=== PATIENT | female | born 1945 | race Caucasian/White ===

== ENCOUNTER 2022-06-04 10:05 | Inpatient (IN) | payer OTHER, SELFPAY ==
[2022-06-04] VITALS (9 sets, daily range): BP systolic 109–139; BP diastolic 52–64; PULSE 60–73; RESP 18–24; TEMP 36.5–37.1; O2SAT 88–92; BMI 24.3; BMI 25.0
--- NOTE | 2022-06-04 10:11 | CRLHL7_ITS ---
For Patients: As a result of the 21st Century Cures Act, medical imaging exams and procedure reports are released immediately into your electronic medical record. You may view this report before your referring provider. If you have questions, please contact your health care provider. INDICATION: Cough, abdominal pain, concern for pulmonary embolus TECHNIQUE: CT chest, abdomen and pelvis acquired 95 milliliters Isovue 370 contrast. COMPARISON: None. FINDINGS: CHEST: Pulmonary arteries: Motion degrades evaluation of the distal segmental and subsegmental pulmonary arteries. No central or proximal segmental pulmonary embolus. Lungs and Airways: Left upper lobe and lingular consolidation. Left basilar passive atelectasis. 4 millimeter nodule in the middle lobe axial image 137. Bibasilar subsegmental atelectasis. No endoluminal lesion. Heart and Mediastinum: Atrophic versus resected thyroid. No axillary or supraclavicular lymphadenopathy. Conspicuous not enlarged mediastinal lymph nodes. Normal heart size. Normal caliber aorta. Atherosclerotic aorta. Pleura: Small left pleural effusion. ABDOMEN: Liver: Normal enhancement. No focal suspicious hepatic lesions. Gallbladder and biliary: Normal gallbladder without radiopaque stone. Normal caliber bile ducts. Spleen: Normal size and enhancement. Pancreas: Normal enhancement without peripancreatic inflammatory changes or ductal dilatation. Adrenal glands: Normal adrenal glands. Kidneys and ureters: Normal enhancement. No radio-opaque calculi. No hydroureteronephrosis. Subcentimeter hypodensities are too small to characterize however statistically represent cysts. GI tract: The stomach is relatively decompressed. Normal caliber small and large bowel loops. Appendix not definitively visualized. Likely appendectomy scattered colonic diverticula without diverticulitis. Vascular structures: Patent abdominal aorta with atherosclerotic vascular calcifications. Patent portosplenic confluence, portal veins, and hepatic veins. Lymph nodes: No lymphadenopathy in the abdomen or pelvis by size criteria. Peritoneum: Small volume free fluid layering in the pelvis. PELVIS: Genitourinary system: Normal urinary bladder. Age-appropriate uterus and ovaries. SKELETAL STRUCTURES AND SOFT TISSUES: Small bilateral fat containing Bochdalek hernias. IMPRESSION: 1. Motion degrades evaluation of the distal segmental and subsegmental pulmonary arteries. No central or proximal segmental pulmonary embolus. 2. Left upper lobe consolidation with associated small left pleural effusion concerning for pneumonia. Recommend unenhanced chest CT in 3 months after appropriate medical therapy to document resolution and to assess for underlying malignant potential. 3. 4 millimeter middle lobe indeterminate pulmonary nodule. Attention on follow-up exams. 4. Small volume free fluid layering dependently in the pelvis, indeterminate. 5. No obstruction or hydroureteronephrosis. Please note that all CT scans at this facility use dose modulation, iterative reconstruction, and/or weight-based dosing when appropriate to reduce radiation dose to as low as reasonably achievable. Dictated by Travon Arnold MD @ 06/04/2022 1:17:12 PM (Electronically Signed)
--- NOTE | 2022-06-04 10:33 | ED_ITS ---
HPI - General Adult General Time Seen by Provider: 10:33 Date Seen: 06/04/22 Chief complaint: Weakness Stated complaint: vomitting,not eaten anything for 2 days Time Seen by Provider: 06/04/22 10:10 Source: patient Mode of arrival: wheelchair Limitations: physical limitation History of Present Illness HPI narrative: Patient is a 76 year white female presents with weakness. She was seen yesterday in the Urgent Care for greater trochanteric bursitis on the right was diagnosed but no treatment was given. Patient has been taking Aleve. Last 2 days she has not ate or drank much. She has been a little bit upset her stomach. She has had no appetite. She has had bowel and bladder function no dysuria. She denies chest pain or shortness of breath, denies fever chills or rigors. Patient has been feeling dehydrated, also feels a little bit weak and her has to actually hold her up. She has had no cough, no leg swelling or edema. She has had a past medical history of hypothyroidism takes Synthroid. Otherwise largely has been healthy, no chronic lung disease. Related Data Home Medications Medication Instructions Recorded Confirmed levothyroxine 100 mcg tablet 100 mcg PO DAILY 06/04/22 06/04/22 simvastatin 10 mg tablet 10 mg PO HS 06/04/22 06/04/22 Allergies Allergy/AdvReac Type Severity Reaction Status Date / Time Penicillins Allergy Verified 06/04/22 11:33 Sulfa (Sulfonamide Allergy Verified 06/04/22 11:33 Antibiotics) Review of Systems Status of ROS: Reports: 10 or more systems reviewed and unremarkable except as noted in History and below PFSH PFS Social History Non-prescribed substance use: denies use Exam Narrative: Exam Narrative: Objective: Patient's vital signs unremarkable O2 sat is slightly low at 91%. The patient is somewhat slow speech. But alert oriented appears fatigued. No conjunctival paleness Mouth is very dry Neck is supple Chest is clear no rales or wheezing Heart rhythm regular without murmur occasional ectopic beat noted Abdomen benign soft nontender no masses Extremities are no edema neurologic nonfocal good peripheral perfusion noted Const: Vital Signs, click to edit/add: Vital Signs - 24 hr 06/04/22 10:22 06/04/22 11:00 06/04/22 12:00 Temperature 98.2 F Pulse Rate [Right Pulse Oximeter] 67 71 Respiratory Rate 18 Blood Pressure [Le ft Upper Arm] 114/52 L 119/57 L Blood Pressure [Ri ght Upper Arm] 127/62 Pulse Oximetry 91 88 88 Oxygen Delivery Me thod Room Air Room Air Room Air 06/04/22 12:30 Temperature Pulse Rate [Right Pulse Oximeter] 73 Respiratory Rate 24 Blood Pressure [Le ft Upper Arm] 121/64 Blood Pressure [Ri ght Upper Arm] Pulse Oximetry 88 Oxygen Delivery Me thod Room Air Course Vital Signs Vital signs: Initial Vital Signs Temperature 98.2 F 06/04/22 10:22 Temperature Source Temporal Artery Scan 06/04/22 10:22 Pulse Rate 67 06/04/22 10:22 Respiratory Rate 18 06/04/22 10:22 Blood Pressure 127/62 06/04/22 10:22 Blood Pressure Mean 83 06/04/22 10:22 Blood Pressure Position Supine 06/04/22 10:22 Pulse Oximetry 91 06/04/22 10:22 Oxygen Delivery Method 06/04/22 10:22 Vital Signs Temperature 98.2 F 06/04/22 10:22 Pulse Rate 67 06/04/22 10:22 Respiratory Rate 18 06/04/22 10:22 Blood Pressure 127/62 06/04/22 10:22 Pulse Oximetry 91 06/04/22 10:22 Oxygen Delivery Method 06/04/22 10:22 Temperature 98.2 F 06/04/22 10:22 Pulse Rate 73 06/04/22 12:30 Respiratory Rate 24 06/04/22 12:30 Blood Pressure 121/64 06/04/22 12:30 Pulse Oximetry 88 06/04/22 12:30 Oxygen Delivery Method 06/04/22 12:30 Medical Decision Making MDM Narrative Medical decision making narrative: Patient does have tenderness in her right greater trochanter bursa but not significant enough to cause her nausea vomiting poor p.o. intake for couple of days. She has been taking Aleve. She fears very dehydrated. I think ruling out a secondary cause of her situation makes sense. She needs laboratory studies she needs a CT scan of her abdomen she needs IV fluid IV Zofran. Urinalysis blood work. Determination of status based on her clinical response and findings if she continues to be weak than hospitalization might be in order. She does not have a fever today Addendum: The patient has a large left parapneumonic effusion it appears/pleural effusion. Will check above-mentioned studies. Disposition pending CT scan of the chest as well. Addendum: CT appears to show pneumonia. Will patient be started on Levaquin and Rocephin she does have penicillin allergy. Patient also has an EKG that shows normal sinus rhythm. Family was comfortable plan, she seems a little better after hydration. O2 sats have been in the low 90% range probably should have some oxygen for [address] Santos kindly accepts in admission Lab Data Labs: Lab Results 06/04/22 06/04/22 06/04/22 Range/Units 10:11 10:40 10:40 WBC 11.46 H (4.50-11.00) K/uL RBC 4.35 (4.00-5.20) m/uL Hgb 12.8 (12.0-16.0) gm/dL Hct 37.3 (33.0-51.0) % MCV 86 (80-100) fL MCH 29 (26-34) pg MCHC 34 (32-36) gm/dL RDW Coeff of Chidi 14.6 (11.5-15.5) % Plt Count 187 (140-440) K/uL Neut % (Auto) 86.2 H (42.0-72.0) % Lymph % (Auto) 5.8 L (20-44) % Jenkins % (Auto) 3.1 (0.0-11.0) % Eos % (Auto) 0.0 (0.0-7.0) % Baso % (Auto) 0.1 (0.0-3.0) % Neut # (Auto) 9.90 H (1.7-7.0) K/uL Lymph # (Auto) 0.70 L (0.90-2.90) K/uL Jenkins # (Auto) 0.40 (0.00-0.90) K/UL Eos # (Auto) 0.00 (0.00-0.50) K/uL Baso # (Auto) 0.00 (0.00-0.30) K/uL Diff Slide Review Acceptable Review (Acceptable) INR 0.89 L (0.91-1.10) Sodium (135-149) mmol/L Potassium (3.6-5.1) mmol/L Chloride (96-114) mmol/L Carbon Dioxide (20-32) mmol/L BUN (7-30) mg/dL Creatinine (0.5-1.5) mg/dL Estimated Creat Clear Estimated GFR ml/min Glucose (60-115) mg/dL Lactate (0.5-1.9) mmol/L Calcium (8.4-10.6) mg/dL Total Bilirubin (0.1-1.5) mg/dL Direct Bilirubin (0.0-0.5) mg/dL AST (12-35) U/L ALT (4-35) U/L Alkaline Phosphatase (40-150) U/L Troponin I (0.01-0.04) ng/mL C-Reactive Protein (0.5-1.0) mg/dL NT-Pro-B Natriuret Pep pg/mL Total Protein (6.0-8.3) g/dL Albumin (3.3-5.0) g/dL Amylase (18-89) U/L SARS-CoV-2 (PCR) Negative SARS-CoV-2 (Negative) Influenza Type A (PCR) Negative PCR FLU A (Negative) Influenza Type B (PCR) Negative PCR FLU B (Negative) RSV (PCR) Negative PCR RSV (Negative) 06/04/22 06/04/22 06/04/22 Range/Units 10:40 10:40 10:40 WBC (4.50-11.00) K/uL RBC (4.00-5.20) m/uL Hgb (12.0-16.0) gm/dL Hct (33.0-51.0) % MCV (80-100) fL MCH (26-34) pg MCHC (32-36) gm/dL RDW Coeff of Chidi (11.5-15.5) % Plt Count (140-440) K/uL Neut % (Auto) (42.0-72.0) % Lymph % (Auto) (20-44) % Jenkins % (Auto) (0.0-11.0) % Eos % (Auto) (0.0-7.0) % Baso % (Auto) (0.0-3.0) % Neut # (Auto) (1.7-7.0) K/uL Lymph # (Auto) (0.90-2.90) K/uL Jenkins # (Auto) (0.00-0.90) K/UL Eos # (Auto) (0.00-0.50) K/uL Baso # (Auto) (0.00-0.30) K/uL Diff Slide Review (Acceptable) INR (0.91-1.10) Sodium 128 L (135-149) mmol/L Potassium 4.2 (3.6-5.1) mmol/L Chloride 103 (96-114) mmol/L Carbon Dioxide 19 L (20-32) mmol/L BUN 32 H (7-30) mg/dL Creatinine 1.2 (0.5-1.5) mg/dL Estimated Creat Clear 39.60 Estimated GFR 47 ml/min Glucose 134 H (60-115) mg/dL Lactate 0.9 (0.5-1.9) mmol/L Calcium 8.2 L (8.4-10.6) mg/dL Total Bilirubin 0.7 (0.1-1.5) mg/dL Direct Bilirubin 0.6 H (0.0-0.5) mg/dL AST 92 H (12-35) U/L ALT 43 H (4-35) U/L Alkaline Phosphatase 513 H (40-150) U/L Troponin I 0.03 (0.01-0.04) ng/mL C-Reactive Protein 18.2 H (0.5-1.0) mg/dL NT-Pro-B Natriuret Pep pg/mL Total Protein 6.7 (6.0-8.3) g/dL Albumin 2.9 L (3.3-5.0) g/dL Amylase 98 H (18-89) U/L SARS-CoV-2 (PCR) (Negative) Influenza Type A (PCR) (Negative) Influenza Type B (PCR) (Negative) RSV (PCR) (Negative) 06/04/22 Range/Units 11:20 WBC (4.50-11.00) K/uL RBC (4.00-5.20) m/uL Hgb (12.0-16.0) gm/dL Hct (33.0-51.0) % MCV (80-100) fL MCH (26-34) pg MCHC (32-36) gm/dL RDW Coeff of Chidi (11.5-15.5) % Plt Count (140-440) K/uL Neut % (Auto) (42.0-72.0) % Lymph % (Auto) (20-44) % Jenkins % (Auto) (0.0-11.0) % Eos % (Auto) (0.0-7.0) % Baso % (Auto) (0.0-3.0) % Neut # (Auto) (1.7-7.0) K/uL Lymph # (Auto) (0.90-2.90) K/uL Jenkins # (Auto) (0.00-0.90) K/UL Eos # (Auto) (0.00-0.50) K/uL Baso # (Auto) (0.00-0.30) K/uL Diff Slide Review (Acceptable) INR (0.91-1.10) Sodium (135-149) mmol/L Potassium (3.6-5.1) mmol/L Chloride (96-114) mmol/L Carbon Dioxide (20-32) mmol/L BUN (7-30) mg/dL Creatinine (0.5-1.5) mg/dL Estimated Creat Clear Estimated GFR ml/min Glucose (60-115) mg/dL Lactate (0.5-1.9) mmol/L Calcium (8.4-10.6) mg/dL Total Bilirubin (0.1-1.5) mg/dL Direct Bilirubin (0.0-0.5) mg/dL AST (12-35) U/L ALT (4-35) U/L Alkaline Phosphatase (40-150) U/L Troponin I (0.01-0.04) ng/mL C-Reactive Protein (0.5-1.0) mg/dL NT-Pro-B Natriuret Pep 1480 pg/mL Total Protein (6.0-8.3) g/dL Albumin (3.3-5.0) g/dL Amylase (18-89) U/L SARS-CoV-2 (PCR) (Negative) Influenza Type A (PCR) (Negative) Influenza Type B (PCR) (Negative) RSV (PCR) (Negative) Discharge Plan Discharge Clinical Impression: Weakness, Pneumonia Patient Disposition: Admitted As Inpatient
--- NOTE | 2022-06-04 10:37 | CRLHL7_ITS ---
For Patients: As a result of the Century Cures Act, medical imaging exams and procedure reports are released immediately into your electronic medical record. You may view this report before your referring provider. If you have questions, please contact your health care provider. INDICATION: Weakness. TECHNIQUE: One-view chest. COMPARISON: None. FINDINGS: There is a large left pleural effusion. Additional opacity is present throughout the mid and lower left lung. The right lung is clear. No right-sided pleural effusion is evident. There is no pneumothorax. The cardiac silhouette is obscured. The pulmonary vascularity is within normal limits for technique. IMPRESSION: Large left pleural effusion. Additional opacity in the mid and lower left lung may reflect pneumonia in the appropriate clinical context. Neoplastic process cannot be entirely excluded and follow-up imaging should be performed. Dictated by Antonio Bell MD @ 06/04/2022 11:55:46 AM (Electronically Signed)
[2022-06-04 10:45] LABS: Basophils Percent Auto 0.1 % (0.0-3.0); Hematocrit 37.3 % (33.0-51.0); Hemoglobin* 12.8 gm/dL (12.0-16.0); Immature Granulocytes Pct Auto 4.8 %; Lymphocytes Percent Auto 5.8 % (20-44); Mean Corpuscular HGB Conc 34 gm/dL (32-36); Mean Corpuscular Hemoglobin 29 pg (26-34); Mean Corpuscular Volume 86 fL (80-100); Monocytes Percent Auto 3.1 % (0.0-11.0); Neutrophils Percent Auto 86.2 % (42.0-72.0); Platelet Count* 187 K/uL (140-440); RDW Coefficient of Variation % 14.6 % (11.5-15.5); Red Blood Count 4.35 m/uL (4.00-5.20); White Blood Count* 11.46 K/uL (4.50-11.00)
[2022-06-04 10:46] LABS: Lactate* 0.9 mmol/L (0.5-1.9)
[2022-06-04] MEDS: 0.9 % SODIUM CHLORIDE 1000 ml 1,000 ML 6000 ML IV (10:50)
[2022-06-04] MEDS: ONDANSETRON 2 MG/ML inj 4 MG IVP ×2 (10:50→22:13)
[2022-06-04 11:00] LABS: Albumin* 2.9 g/dL (3.3-5.0); Chloride* 103 mmol/L (96-114)
[2022-06-04 11:01] LABS: Potassium* 4.2 mmol/L (3.6-5.1); Sodium* 128 mmol/L (135-149)
[2022-06-04 11:03] LABS: Amylase* 98 U/L (18-89); Creatinine* 1.2 mg/dL (0.5-1.5); Estimated Glomerular Filt Rate 47 ml/min
[2022-06-04 11:04] LABS: Alanine Aminotransferase* 43 U/L (4-35); Alkaline Phosphatase* 513 U/L (40-150); Aspartate Amino Transferase* 92 U/L (12-35); Bilirubin Direct* 0.6 mg/dL (0.0-0.5); Bilirubin Total* 0.7 mg/dL (0.1-1.5); Blood Urea Nitrogen* 32 mg/dL (7-30); Calcium* 8.2 mg/dL (8.4-10.6); Carbon Dioxide* 19 mmol/L (20-32); Glucose* 134 mg/dL (60-115); Total Protein* 6.7 g/dL (6.0-8.3)
[2022-06-04 11:16] LABS: Troponin I* 0.03 ng/mL (0.01-0.04)
[2022-06-04 11:18] LABS: C Reactive Protein* 18.2 mg/dL (0.5-1.0)
[2022-06-04 11:24] LABS: Slide Review Reflex Yes
[2022-06-04 11:25] LABS: Slide Review Acceptable Review (Acceptable)
[2022-06-04 11:29] LABS: PCR FLU A Negative PCR FLU A (Negative); PCR FLU B Negative PCR FLU B (Negative); PCR RSV Negative PCR RSV (Negative)
[2022-06-04 11:31] LABS: SARS PCR* Negative SARS-CoV-2 (Negative)
[2022-06-04 12:00] LABS: NT Pro B Type NatriureticPept* 1480 pg/mL
[2022-06-04 13:32] LABS: INR 0.89 (0.91-1.10); Prothrombin Time 12.6 Seconds
[2022-06-04] MEDS: levoFLOXacin 500 MG TABLET PO (13:49)
[2022-06-04] MEDS: cefTRIAXone 1 GM in 0.9 % SODIUM CHLORIDE Mini-bag 100 ML IVPB (13:50)
--- NOTE | 2022-06-04 14:56 | PM.IMHP1 ---
Hospitalist- H&P: HPI History of Present Illness Date Seen: 06/04/22 Chief complaint: vomitting,not eaten anything for 2 days Narrative: Cinthia Carlos is a 76 year old female This is a 76F presenting for evaluation of generalized weakness. Since May 25 she has had progressive generalized weakness. Associated symptoms have included cough, sob with activity, nausea and vomiting. she has had decreased PO intake. She denies fever, chest pain, chest pressure. She endorses bilateral hip pain and was recently diagnosed with greater trochanteric bursitis. In the ED notable labs included WBC 11.4. Sodium 128. CO2 19. Lactate WNL. AST 92, ALt 43, Alk phos 513. BNP 1480. Amylase 98. CT CAP notable for?Left upper lobe consolidation with associated small left pleural?effusion concerning for pneumonia. Recommend unenhanced chest CT in 3 months after appropriate medical therapy to document resolution and toassess for underlying malignant potential. She was started on ceftriaxone and doxycycline?and admitted for further evaluation.? CT CAP in ED revealed IMPRESSION: 1. Motion degrades evaluation of the distal segmental and subsegmental pulmonary arteries. No central or proximal segmental pulmonary embolus. 2. Left upper lobe consolidation with associated small left pleural effusion concerning for pneumonia. Recommend unenhanced chest CT in 3 months after appropriate medical therapy to document resolution and to assess for underlying malignant potential. 3. 4 millimeter middle lobe indeterminate pulmonary nodule. Attention on follow-up exams. 4. Small volume free fluid layering dependently in the pelvis, indeterminate. 5. No obstruction or hydroureteronephrosis. CXR Large left pleural effusion. Additional opacity in the mid and lower left lung may reflect pneumonia in the appropriate clinical context. Neoplastic process cannot be entirely excluded and follow-up imaging should be performed. Review of Systems Status of ROS: Reports: 10 or more systems reviewed and unremarkable except as noted in History and below [facility] PFS Social History Non-prescribed substance use: denies use Meds Home Medications and Allergies Home Medications Medication Instructions Recorded Confirmed Type levothyroxine 100 mcg tablet 100 mcg PO DAILY 06/04/22 06/04/22 History simvastatin 10 mg tablet 10 mg PO HS 06/04/22 06/04/22 History Allergies Allergy/AdvReac Type Severity Reaction Status Date / Time Penicillins Allergy Verified 06/04/22 11:33 Sulfa (Sulfonamide Allergy Verified 06/04/22 11:33 Antibiotics) Exam Narrative: Exam Narrative: Gen: no acute distress HEENT: NCAT EOMI mmm Neck: Supple CV: RRR normal s1 s2 Lungs: CTAB Abd: Soft,nt, nd Neuro: Alert, oriented, CN grossly intact; nonfocal screening?exam Psych: appropriate affect MSK: age appropriate muscle mass Skin; Warm, dry no rash on face Const: Vital Signs, click to edit/add: Vital Signs - 24 hr 06/04/22 10:22 06/04/22 11:00 06/04/22 12:00 Temperature 98.2 F Pulse Rate [Right Pulse Oximeter] 67 71 Respiratory Rate 18 Blood Pressure [Le ft Upper Arm] 114/52 L 119/57 L Blood Pressure [Ri ght Upper Arm] 127/62 Pulse Oximetry 91 88 88 Oxygen Delivery Me thod Room Air Room Air Room Air 06/04/22 12:30 Temperature Pulse Rate [Right Pulse Oximeter] 73 Respiratory Rate 24 Blood Pressure [Le ft Upper Arm] 121/64 Blood Pressure [Ri ght Upper Arm] Pulse Oximetry 88 Oxygen Delivery Me thod Room Air Hospitalist - H&P: Result Labs Labs: Short CBC 06/04/22 Range/Units 10:40 WBC 11.46 H (4.50-11.00) K/uL Hgb 12.8 (12.0-16.0) gm/dL Hct 37.3 (33.0-51.0) % Plt Count 187 (140-440) K/uL BMP 06/04/22 10:40 Sodium 128 L Potassium 4.2 Chloride 103 Carbon Dioxide 19 L BUN 32 H Creatinine 1.2 Glucose 134 H Calcium 8.2 L Cardiac Enzymes 06/04/22 Range/Units 10:40 Troponin I 0.03 (0.01-0.04) ng/mL Liver Function 06/04/22 Range/Units 10:40 Total Bilirubin 0.7 (0.1-1.5) mg/dL Direct Bilirubin 0.6 H (0.0-0.5) mg/dL AST 92 H (12-35) U/L ALT 43 H (4-35) U/L Alkaline Phosphatase 513 H (40-150) U/L Albumin 2.9 L (3.3-5.0) g/dL Assessment and Plan Assessment and plan (1) Pneumonia: Status: Acute (2) Hyponatremia: Status: Acute (3) Weakness: Status: Acute (4) Hypothyroidism: Status: Acute (5) Abnormal LFTs (liver function tests): Status: Acute (6) Hyperlipidemia: Status: Acute (7) Elevated amylase: Status: Acute Plan Cinthia Carlos is a 76 year old female presenting for evaluation of generalized weakness, cough, sob with activity, nausea and vomiting. she has had decreased PO intake. In the ED notable labs included WBC 11.4. Sodium 128. CO2 19. Lactate WNL. AST 92, ALt 43, Alk phos 513. BNP 1480. Amylase 98. CT CAP notable for?Left upper lobe consolidation with associated small left pleural?effusion concerning for pneumonia. Recommend unenhanced chest CT in 3 months after appropriate medical therapy to document resolution and to assess for underlying malignant potential. She was started on ceftriaxone and levaquin?and admitted for further evaluation. 1. Left upper lobe PNA w/small left pleural effusion; currently on room air 2. Generalized weakness secondary to #1 3. Hypovolemic Hyponatremia 4. Abnormal LFTs/Transaminitis 5. SOB/Elevated BNP 6. Elevated amylase 7. Recent diagnosis of greater trochanteric bursitits 8. Hx of Hypothyroidism 9. hx of HLD Plan -admit to inpatient -continue antibiotics: ceftriaxone +doxycycline -IVF; repeat sodium -trend LFts, check hepatitis serologies, check RUQ US -check lipase -check TSH -hold statin -therapy evaluation ? -Echo -outpatient CT Chest 3 months Code-Full DVT ppx-lovenox Dispo-anticipated dc home 2-3 days
[2022-06-04 15:00] LABS: Appearance Urine Clear (Clear); Bilirubin Urine Negative (Negative); Blood Urine Trace-lysed (Negative); Color Urine Yellow (Yellow); Glucose Urine Negative (Negative); Ketones Urine Negative (Negative); Leukocyte Esterase Urine Negative (Negative); Nitrite Urine Negative (Negative); Protein Urine Trace (Negative); Urobilinogen Urine 0.2 (0.2-1.0); pH Urine 6.5 (5.0-8.5)
[2022-06-04 15:16] LABS: Bacteria Urine Few; RBC Urine 0-2 (0-2); Squamous Epithelial Cell Urine Few (None-Few); WBC Urine 0-2 (0-5)
[2022-06-04] MEDS: 0.9 % SODIUM CHLORIDE 1000 ml 1,000 ML 100 ML IV (15:31)
[2022-06-04] MEDS: OXYCODONE 5 MG TABLET PO (18:23)
[2022-06-04 19:56] LABS: Sodium* 130 mmol/L (135-149)
[2022-06-04 20:16] LABS: Procalcitonin* 1.09 ng/mL (<0.50)
[2022-06-04] MEDS: ENOXAPARIN 40 MG/0.4 ML INJ SUBCUT (20:17)
[2022-06-04] MEDS: SODIUM CHLORIDE 0.9 % (FLUSH) 10 ML SYRINGE 5 ML IVF (20:23)
[2022-06-05 00:02] LABS: Sodium* 128 mmol/L (135-149)
[2022-06-05 00:05] LABS: Lipase* 224 U/L (23-300)
[2022-06-05] MEDS: 0.9 % SODIUM CHLORIDE 1000 ml 1,000 ML 100 ML IV ×3 (00:42→20:50)
[2022-06-05 03:00] VITALS: BP 120/60; PULSE 60; RESP 18; TEMP 37.1; O2SAT 90
[2022-06-05] MEDS: LEVOTHYROXINE 100 MCG TABLET PO (06:14)
[2022-06-05 06:34] LABS: Basophils Absolute Auto 0.01 K/uL (0.00-0.30); Basophils Percent Auto 0.1 % (0.0-3.0); Eosinophils Absolute Auto 0.01 K/uL (0.00-0.50); Eosinophils Percent Auto 0.1 % (0.0-7.0); Hematocrit 34.8 % (33.0-51.0); Hemoglobin* 11.7 gm/dL (12.0-16.0); Immature Granulocytes Pct Auto 7.3 %; Lymphocytes Percent Auto 7.4 % (20-44); Mean Corpuscular HGB Conc 34 gm/dL (32-36); Mean Corpuscular Hemoglobin 30 pg (26-34); Mean Corpuscular Volume 88 fL (80-100); Monocytes Percent Auto 2.9 % (0.0-11.0); Neutrophils Percent Auto 82.2 % (42.0-72.0); Platelet Count* 190 K/uL (140-440); RDW Coefficient of Variation % 15.4 % (11.5-15.5); Red Blood Count 3.97 m/uL (4.00-5.20)
[2022-06-05 06:55] LABS: Albumin* 2.4 g/dL (3.3-5.0); Chloride* 108 mmol/L (96-114); Potassium* 4.4 mmol/L (3.6-5.1); Sodium* 133 mmol/L (135-149)
[2022-06-05 06:57] LABS: Bilirubin Direct* 0.4 mg/dL (0.0-0.5); Bilirubin Total* 0.5 mg/dL (0.1-1.5); Carbon Dioxide* 19 mmol/L (20-32); Est. Creatinine Clearance* 47.53; Estimated Glomerular Filt Rate 58 ml/min
[2022-06-05 06:58] LABS: Alanine Aminotransferase* 38 U/L (4-35); Alkaline Phosphatase* 380 U/L (40-150); Aspartate Amino Transferase* 74 U/L (12-35); Blood Urea Nitrogen* 23 mg/dL (7-30); Calcium* 7.3 mg/dL (8.4-10.6); Glucose* 93 mg/dL (60-115); Lipase* 144 U/L (23-300); Total Protein* 5.7 g/dL (6.0-8.3)
[2022-06-05 07:12] LABS: Slide Review Reflex Yes
[2022-06-05 07:13] LABS: Procalcitonin* 0.99 ng/mL (<0.50); Slide Review Acceptable Review (Acceptable)
[2022-06-05 07:30] VITALS: BP 123/61; PULSE 64; RESP 20; TEMP 36.4; O2SAT 96
--- NOTE | 2022-06-05 07:38 | PC.NURSE ---
Status [id number] Pt drowsy, able to answer orientation questions but delayed with responses. Speech is somewhat stuttered. , Juan M, rooming in and stating this is not baseline for patient. Pt did receive Oxy at 1830 and did report pt is sensitive to medications. Pt did get nauseated with emesis around 2230 when transferring to commode. PRN zofran given. Neuros checked and intact. As the night progressed, mentation clearing up a little bit. Pt remains very weak, requiring assist of 2 and pivot to commode. Voiding adequately. NS at 100mL/hr. Continues on IV antibiotics. BP stable. Requiring 2L of supplemental oxygen to maintain sats >90%. Pt observed resting between cares.
[2022-06-05 07:57] LABS: Free T4 Free Thyroxine* 0.92 ng/dL (0.70-1.85)
[2022-06-05] MEDS: SODIUM CHLORIDE 0.9 % (FLUSH) 10 ML SYRINGE 5 ML IVF ×2 (09:21→19:49)
--- NOTE | 2022-06-05 10:29 | PM.IMPN1 ---
Progress Note: A&P Assessment and plan (1) Acute respiratory failure, unspecified whether with hypoxia or hypercapnia: Problem details: Related to her left lung consolidation and pleural effusion. Her inflammatory markers an elevated white blood cell count point to a pneumonia, however the concern for this to be a postobstructive pneumonia is definitely present. Continue to trend her inflammatory markers, continue current antibiotic profile. At a minimum will need a 3 month follow-up CT scan. I have reviewed the CT from admission. Patient only needed 1-2 L of O2 overnight but she does sat in the 90 91% range just sitting still on room air. May need to qualify her for home O2. I would like to have RT assess her and continue DuoNebs, vibratory PEEP, incentive spirometry. Will also have therapies, PT and OT, evaluate. Status: Acute (2) Pneumonia: Problem details: Continue ceftriaxone and azithromycin. If she spikes fevers or worsens clinically weakened widened antibiotic profile at that time. Status: Acute (3) Abnormal LFTs (liver function tests): Problem details: Likely from hepatic congestion or transaminitis from current infection. Will trend. I have not yet ordered a ultrasound as her numbers are down trending. However I will keep this on my radar. Status: Acute (4) Hypothyroidism: Problem details: Continue current outpatient levothyroxine dosing Status: Acute (5) Hyponatremia: Problem details: Trended follow Status: Acute (6) Weakness: Problem details: Have therapies work with her Status: Acute Subjective Date Seen: 06/05/22 Interval history: Daily Progress Note - Hospital Medicine Day #: 2 CC: Pneumonia, weakness, right hip pain OVERNIGHT UPDATES FROM STAFF & MED, LAB, IMAGING UPDATES Cinthia is seen this morning. She is up in the chair. She is having some mild nausea. No respiratory distress. She is very somnolent. Bedside nurse relates that she is very sensitive to opioids and between the Oxy and hydro for her hip she seems to be very groggy. With this exam I did repeat her chest x-ray and order a blood gas. Both of those are either stable or reassuring. Her x-ray does not show a new pneumothorax but yet a stable large left upper lobe consolidation with small pleural effusion. We do have an echo planned. 123/61, pulse 64, respirations 20. Afebrile. Overnight needed a couple L of oxygen but has been weaned off oxygen throughout the day today. CBC has noted a leukocytosis that is down trending. Hemoglobin is down to 11.7. Blood gas this morning was quite reassuring. PH was 7.32, pCO2 41. Ionized calcium is bit low at 1.08, lactate 1.0, magnesium is 2.3. LFTs were all surprisingly elevated on admission but they are all down trending. Her C reactive protein is 19.8, procalcitonin is 0.99 both of these are down trending. I reviewed her chest abdomen pelvis from admission, notably: -Left upper lobe consolidation with associated small left pleural effusion concerning for pneumonia. Recommend unenhanced chest CT in 3 months after appropriate medical therapy to document resolution and to assess for underlying malignant potential. She continues on 100 mL of normal saline, ceftriaxone 2 g Q 24, azithromycin 500 p.o. Q 24. Her usual meds levothyroxine were continued. Scheduled acetaminophen. P.r.n. Toradol. Oxy or hydromorphone or a combination resulted in significant somnolence. I am switching to scheduled Tylenol and IV Toradol. Objective: Vitals: see above Lungs: difficult to assess the left side; breath sounds are distant. moving air well on the right - THUS ORDERED A F/U CXR - no pneumo. moderate consolidation and effusion noted. Cardiac: S1S2. right hip - tender over the greater trochanter Disposition/Potential discharge - Likely to return to previous living situation. Total time is 35 minutes with greater than 50% spent in counseling and coordination of care. Exam Const: Vital Signs, click to edit/add: Vital Signs - 24 hr 06/04/22 11:00 06/04/22 12:00 06/04/22 12:30 Temperature Pulse Rate [Left R adial] Pulse Rate [Pulse Oximeter] Pulse Rate [Right Pulse Oximeter] 71 73 Respiratory Rate 24 Blood Pressure [Le ft Arm] Blood Pressure [Le ft Upper Arm] 114/52 L 119/57 L 121/64 Blood Pressure [Ri ght Arm] Pulse Oximetry 88 88 88 Oxygen Delivery Me thod Room Air Room Air Room Air Oxygen Flow Rate 06/04/22 15:04 06/04/22 16:26 06/04/22 20:23 Temperature 98.8 F 97.7 F Pulse Rate [Left R adial] 72 64 Pulse Rate [Pulse Oximeter] Pulse Rate [Right Pulse Oximeter] Respiratory Rate 20 20 Blood Pressure [Le ft Arm] 139/62 109/61 Blood Pressure [Le ft Upper Arm] Blood Pressure [Ri ght Arm] Pulse Oximetry 92 92 91 Oxygen Delivery Me thod Room Air Room Air Room Air Oxygen Flow Rate 06/04/22 23:00 06/04/22 23:00 06/04/22 23:50 Temperature 98.8 F Pulse Rate [Left R adial] 64 Pulse Rate [Pulse Oximeter] 60 Pulse Rate [Right Pulse Oximeter] Respiratory Rate 18 Blood Pressure [Le ft Arm] 115/61 Blood Pressure [Le ft Upper Arm] Blood Pressure [Ri ght Arm] Pulse Oximetry 92 92 Oxygen Delivery Me thod Nasal Cannula Nasal Cannula Oxygen Flow Rate 2 2 06/05/22 03:00 Temperature 98.7 F Pulse Rate [Left R adial] Pulse Rate [Pulse Oximeter] 60 Pulse Rate [Right Pulse Oximeter] Respiratory Rate 18 Blood Pressure [Le ft Arm] Blood Pressure [Le ft Upper Arm] Blood Pressure [Ri ght Arm] 120/60 Pulse Oximetry 90 Oxygen Delivery Me thod Nasal Cannula Oxygen Flow Rate 2 Labs Labs: Laboratory Results - last 24 hr 06/04/22 06/04/22 06/04/22 10:11 10:12 10:40 WBC 11.46 H RBC 4.35 Hgb 12.8 Hct 37.3 MCV 86 MCH 29 MCHC 34 RDW Coeff of Chidi 14.6 Plt Count 187 Neut % (Auto) 86.2 H Lymph % (Auto) 5.8 L P[place] % (Auto) 3.1 Eos % (Auto) 0.0 Baso % (Auto) 0.1 Neut # (Auto) 9.90 H Lymph # (Auto) 0.70 L P[place] # (Auto) 0.40 Eos # (Auto) 0.00 Baso # (Auto) 0.00 Diff Slide Review Acceptable Review INR Sodium Potassium Chloride Carbon Dioxide BUN Creatinine Estimated Creat Clear Estimated GFR Glucose Lactate Calcium Total Bilirubin Direct Bilirubin AST ALT Alkaline Phosphatase Troponin I C-Reactive Protein NT-Pro-B Natriuret Pep Total Protein Albumin Amylase Lipase Procalcitonin TSH Free T4 Urine Color Yellow Urine Appearance Clear Urine pH 6.5 Ur Specific Gardiner 1.010 Urine Protein Trace A Urine Glucose (UA) Negative Urine Ketones Negative Urine Blood Trace-lysed A Urine Nitrite Negative Urine Bilirubin Negative Urine Urobilinogen 0.2 Ur Leukocyte Esterase Negative Urine RBC 0-2 Urine WBC 0-2 Ur Squamous Epith Cells Few Urine Bacteria Few A SARS-CoV-2 (PCR) Negative SARS-CoV-2 Influenza Type A (PCR) Negative PCR FLU A Influenza Type B (PCR) Negative PCR FLU B RSV (PCR) Negative PCR RSV 06/04/22 06/04/22 06/04/22 10:40 10:40 10:40 WBC RBC Hgb Hct MCV MCH MCHC RDW Coeff of Chidi Plt Count Neut % (Auto) Lymph % (Auto) Pinal % (Auto) Eos % (Auto) Baso % (Auto) Neut # (Auto) Lymph # (Auto) Pinal # (Auto) Eos # (Auto) Baso # (Auto) Diff Slide Review INR 0.89 L Sodium 128 L Potassium 4.2 Chloride 103 Carbon Dioxide 19 L BUN 32 H Creatinine 1.2 Estimated Creat Clear 39.60 Estimated GFR 47 Glucose 134 H Lactate 0.9 Calcium 8.2 L Total Bilirubin 0.7 Direct Bilirubin 0.6 H AST 92 H ALT 43 H Alkaline Phosphatase 513 H Troponin I C-Reactive Protein 18.2 H NT-Pro-B Natriuret Pep Total Protein 6.7 Albumin 2.9 L Amylase 98 H Lipase Procalcitonin TSH Free T4 Urine Color Urine Appearance Urine pH Ur Specific Gardiner Urine Protein Urine Glucose (UA) Urine Ketones Urine Blood Urine Nitrite Urine Bilirubin Urine Urobilinogen Ur Leukocyte Esterase Urine RBC Urine WBC Ur Squamous Epith Cells Urine Bacteria SARS-CoV-2 (PCR) Influenza Type A (PCR) Influenza Type B (PCR) RSV (PCR) 06/04/22 06/04/22 06/04/22 10:40 11:20 19:38 WBC RBC Hgb Hct MCV MCH MCHC RDW Coeff of Chidi Plt Count Neut % (Auto) Lymph % (Auto) Pinal % (Auto) Eos % (Auto) Baso % (Auto) Neut # (Auto) Lymph # (Auto) Pinal # (Auto) Eos # (Auto) Baso # (Auto) Diff Slide Review INR Sodium 130 L Potassium Chloride Carbon Dioxide BUN Creatinine Estimated Creat Clear Estimated GFR Glucose Lactate Calcium Total Bilirubin Direct Bilirubin AST ALT Alkaline Phosphatase Troponin I 0.03 C-Reactive Protein NT-Pro-B Natriuret Pep 1480 Total Protein Albumin Amylase Lipase Procalcitonin 1.09 H TSH Free T4 Urine Color Urine Appearance Urine pH Ur Specific Gardiner Urine Protein Urine Glucose (UA) Urine Ketones Urine Blood Urine Nitrite Urine Bilirubin Urine Urobilinogen Ur Leukocyte Esterase Urine RBC Urine WBC Ur Squamous Epith Cells Urine Bacteria SARS-CoV-2 (PCR) Influenza Type A (PCR) Influenza Type B (PCR) RSV (PCR) 06/04/22 06/04/22 06/05/22 23:43 23:43 05:47 WBC RBC Hgb Hct MCV MCH MCHC RDW Coeff of Chidi Plt Count Neut % (Auto) Lymph % (Auto) Pinal % (Auto) Eos % (Auto) Baso % (Auto) Neut # (Auto) Lymph # (Auto) Pinal # (Auto) Eos # (Auto) Baso # (Auto) Diff Slide Review INR Sodium 128 L Potassium Chloride Carbon Dioxide BUN Creatinine Estimated Creat Clear Estimated GFR Glucose Lactate Calcium Total Bilirubin Direct Bilirubin AST ALT Alkaline Phosphatase Troponin I C-Reactive Protein NT-Pro-B Natriuret Pep Total Protein Albumin Amylase Lipase 224 Procalcitonin TSH 6.470 H Free T4 0.92 Urine Color Urine Appearance Urine pH Ur Specific Gardiner Urine Protein Urine Glucose (UA) Urine Ketones Urine Blood Urine Nitrite Urine Bilirubin Urine Urobilinogen Ur Leukocyte Esterase Urine RBC Urine WBC Ur Squamous Epith Cells Urine Bacteria SARS-CoV-2 (PCR) Influenza Type A (PCR) Influenza Type B (PCR) RSV (PCR) 06/05/22 06/05/22 05:47 05:47 WBC 9.60 RBC 3.97 L Hgb 11.7 L Hct 34.8 MCV 88 MCH 30 MCHC 34 RDW Coeff of Chidi 15.4 Plt Count 190 Neut % (Auto) 82.2 H Lymph % (Auto) 7.4 L P[place] % (Auto) 2.9 Eos % (Auto) 0.1 Baso % (Auto) 0.1 Neut # (Auto) 7.90 H Lymph # (Auto) 0.70 L P[place] # (Auto) 0.30 Eos # (Auto) 0.01 Baso # (Auto) 0.01 Diff Slide Review Acceptable Review INR Sodium 133 L Potassium 4.4 Chloride 108 Carbon Dioxide 19 L BUN 23 Creatinine 1.0 Estimated Creat Clear 47.53 Estimated GFR 58 Glucose 93 Lactate Calcium 7.3 L Total Bilirubin 0.5 Direct Bilirubin 0.4 AST 74 H ALT 38 H Alkaline Phosphatase 380 H Troponin I C-Reactive Protein NT-Pro-B Natriuret Pep Total Protein 5.7 L Albumin 2.4 L Amylase Lipase 144 Procalcitonin 0.99 H TSH Free T4 Urine Color Urine Appearance Urine pH Ur Specific Gardiner Urine Protein Urine Glucose (UA) Urine Ketones Urine Blood Urine Nitrite Urine Bilirubin Urine Urobilinogen Ur Leukocyte Esterase Urine RBC Urine WBC Ur Squamous Epith Cells Urine Bacteria SARS-CoV-2 (PCR) Influenza Type A (PCR) Influenza Type B (PCR) RSV (PCR)
--- NOTE | 2022-06-05 10:30 | CRLHL7_ITS ---
For Patients: As a result of the Century Cures Act, medical imaging exams and procedure reports are released immediately into your electronic medical record. You may view this report before your referring provider. If you have questions, please contact your health care provider. Indication: Follow-up pneumonia, effusion Comparison: Single view chest November 02, 2022 Technique: Single AP view chest Findings: There is hyperinflation and chronic interstitial change. Unchanged left basilar pleural effusion with adjacent compressive atelectasis versus infiltrates. [id number] interstitial changes are seen throughout the bilateral hemithoraces likely representing superimposed pulmonary vascular congestion. The cardiac silhouette is partially obscured by overlying parenchymal opacity. The bony thorax is grossly intact. Impression: Left basilar pleural effusion with adjacent compressive atelectasis versus infiltrates with superimposed mild pulmonary vascular congestion. Overall, no significant change from comparison. Dictated by Braden Anderson MD @ 06/05/2022 1:16:31 PM (Electronically Signed)
[2022-06-05 10:47] LABS: HCO3 VBG 21 mmol/L (21-28); PCO2 VBG 41 mmHG (40-50); pH VBG 7.323 (7.32-7.43)
[2022-06-05 10:48] LABS: C Reactive Protein* 19.8 mg/dL (0.5-1.0)
[2022-06-05 10:48] LABS: Ionized Calcium* 1.08 mmol/L (1.11-1.30)
[2022-06-05 11:00] VITALS: BP 123/61; PULSE 64; RESP 18; TEMP 36.9; O2SAT 91
[2022-06-05 11:07] LABS: Magnesium* 2.3 mg/dL (1.5-2.6)
[2022-06-05] MEDS: ACETAMINOPHEN 325 MG TABLET 975 MG PO ×3 (11:44→23:37)
[2022-06-05] MEDS: AZITHROMYCIN 250 MG TABLET 500 MG PO (11:56)
[2022-06-05] MEDS: cefTRIAXone 2 GM in 0.9 % SODIUM CHLORIDE Mini-bag 100 ML IVPB (11:57)
[2022-06-05 15:45] VITALS: BP 132/71; PULSE 66; RESP 18; TEMP 36.8; O2SAT 88
--- NOTE | 2022-06-05 15:54 | PC.NURSE ---
Pt slightly sleepy this am, fatigued and 2 assist to BSC required with GB and walker. PT eval by Laura Miller and pt up to recliner. Juan M supportive and vigilant at bedside. IV and po atb provided for pt's pneumonia. Pt stated her right hip pain flared to an 8 out of 10. Pain relieved by repositioning, ice pack and 975 mg of PO Acetaminophen. CXR repeated at bedside. Pt denies nausea, she has a poor appetite d/to dietary limitations related to her diagnosis of Sjogrens. Biotene mouth rinse available to pt at bedside. Report to Pili Sanford RN for evening shift. Dr. Cloud and Dr. Cooper will discuss injecting pt's right knee later this evening.
--- NOTE | 2022-06-05 19:02 | PC.NURSE ---
Shift [id number]- Patient in bed throughout shift. She states ice to hip is helping pain a lot. She is awake, but somewhat slow to respond. at bedside. She is up with pivot to commode with gait belt and assist of 1. She states she was somewhat dizzy getting up and is laid back to bed. She denies SOB.
[2022-06-05] MEDS: ONDANSETRON 2 MG/ML inj 4 MG IVP (19:48)
[2022-06-05] MEDS: KETOROLAC 30 MG/ML inj IVP (19:48)
[2022-06-05 20:34] VITALS: BP 141/69; PULSE 66; RESP 18; TEMP 36.6; O2SAT 90
[2022-06-05] MEDS: ENOXAPARIN 40 MG/0.4 ML INJ SUBCUT (20:51)
[2022-06-05 23:00] VITALS: BP 146/64; PULSE 62; RESP 18; TEMP 36.6; O2SAT 93
[2022-06-06 03:00] VITALS: BP 129/56; PULSE 61; RESP 18; TEMP 36.5; O2SAT 93
[2022-06-06] MEDS: ACETAMINOPHEN 325 MG TABLET 975 MG PO ×3 (06:02→18:25)
[2022-06-06] MEDS: LEVOTHYROXINE 100 MCG TABLET PO (06:02)
[2022-06-06] MEDS: 0.9 % SODIUM CHLORIDE 1000 ml 1,000 ML 100 ML IV ×2 (06:08→21:59)
[2022-06-06 06:54] LABS: HCO3 VBG 23 mmol/L (21-28); PCO2 VBG 43 mmHG (40-50); PO2 VBG 32.2 mmHG (25-47)
--- NOTE | 2022-06-06 07:00 | PC.NURSE ---
23-07: pleasant. A x 1-2 to BSC. Pt on 2L O2 while asleep to maintain sats >88%. Encouraged IS use & deep breathing exercises. C/o pain in her right hip, active ice and repositioning for comfort. Juan M at bedside throughout shift.
[2022-06-06 07:03] LABS: Hematocrit 34.5 % (33.0-51.0); Hemoglobin* 11.5 gm/dL (12.0-16.0); Mean Corpuscular HGB Conc 33 gm/dL (32-36); Mean Corpuscular Hemoglobin 30 pg (26-34); Mean Corpuscular Volume 89 fL (80-100); Platelet Count* 189 K/uL (140-440); Red Blood Count 3.88 m/uL (4.00-5.20); White Blood Count* 8.13 K/uL (4.50-11.00)
[2022-06-06 07:09] LABS: Slide Review Reflex No
[2022-06-06 07:19] LABS: INR 0.94 (0.91-1.10); Prothrombin Time 13.2 Seconds
[2022-06-06 07:22] LABS: Iron* 21 ug/dL (37-170)
[2022-06-06 07:25] LABS: Albumin* 2.2 g/dL (3.3-5.0); Chloride* 112 mmol/L (96-114)
[2022-06-06 07:26] LABS: Potassium* 4.9 mmol/L (3.6-5.1); Sodium* 136 mmol/L (135-149)
[2022-06-06 07:28] LABS: Creatinine* 0.9 mg/dL (0.5-1.5); Est. Creatinine Clearance* 47.53; Estimated Glomerular Filt Rate 66 ml/min
[2022-06-06 07:29] LABS: Alanine Aminotransferase* 35 U/L (4-35); Alkaline Phosphatase* 367 U/L (40-150); Aspartate Amino Transferase* 80 U/L (12-35); Bilirubin Total* 0.5 mg/dL (0.1-1.5); Blood Urea Nitrogen* 21 mg/dL (7-30); Calcium* 7.5 mg/dL (8.4-10.6); Carbon Dioxide* 20 mmol/L (20-32); Gamma Glutamyl Transpeptidase* 154 U/L (8-55); Glucose* 100 mg/dL (60-115); Lipase* 153 U/L (23-300); Total Protein* 5.4 g/dL (6.0-8.3)
[2022-06-06 07:31] LABS: Percent Iron Saturation 16 % (20-50); Total Iron Binding Capacity 132 ug/dL (265-497)
[2022-06-06 07:35] LABS: NT Pro B Type NatriureticPept* 2830 pg/mL
[2022-06-06 07:39] LABS: Troponin I* 0.14 ng/mL (0.01-0.04)
[2022-06-06 07:41] LABS: Procalcitonin* 0.74 ng/mL (<0.50)
[2022-06-06 07:47] LABS: C Reactive Protein* 15.9 mg/dL (0.5-1.0)
[2022-06-06] MEDS: KETOROLAC 30 MG/ML inj IVP (07:49)
--- NOTE | 2022-06-06 08:00 | CRLHL7_ITS ---
For Patients: As a result of the Century Cures Act, medical imaging exams and procedure reports are released immediately into your electronic medical record. You may view this report before your referring provider. If you have questions, please contact your health care provider. INDICATION: Follow-up pneumonia. TECHNIQUE: One-view chest. COMPARISON: 06/05/2022. FINDINGS: There is persistent and dense airspace consolidation throughout the mid and lower left lung. Aeration of the left lung apex is similar. There is a suspected new trace right pleural effusion and there is new faint patchy opacity throughout the right lung. The cardiac silhouette is obscured. There is no pneumothorax IMPRESSION: 1. Persistent dense airspace consolidation throughout the left lung, similar compared to prior. 2. New faint patchy airspace opacity throughout the right lung, suspicious for pneumonia. Dictated by Antonio Bell MD @ 06/06/2022 9:03:37 AM (Electronically Signed)
--- NOTE | 2022-06-06 08:28 | CRLHL7_ITS ---
For Patients: As a result of the Century Cures Act, medical imaging exams and procedure reports are released immediately into your electronic medical record. You may view this report before your referring provider. If you have questions, please contact your health care provider. HISTORY: Right hip pain. TECHNIQUE: MRI right hip without and with IV contrast. 15 mL Dotarem IV. COMPARISON: CT chest, abdomen, and pelvis 06/04/2022. FINDINGS: Right hip: Under surface tearing of the anterior-superior labrum. Moderate grade cartilage loss in the superomedial femoral head and acetabulum. Mild subarticular marrow edema in the superomedial acetabulum. Physiologic quantity of joint fluid. Left hip: On the large [id number] images of the pelvis there mild degenerative changes. Mild subarticular cyst-like changes in the posterior-superior acetabulum. Physiologic quantity of joint fluid. Bones: No fracture. No marrow replacing process. No osteonecrosis. Muscles and tendons: Right proximal rectus femoris, distal iliopsoas, and hip adductor tendons are intact. 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 Small amount of fluid in the right sub gluteus minimus bursa. Right distal gluteus medius tendon is intact. Right proximal hamstring tendons are intact. No right iliopsoas bursal fluid. Other: Pubic symphysis is maintained. Sacroiliac joints are maintained. Intrapelvic structures: Small amount of free fluid. 1.8 cm probable myoma in the anterior uterus. No lymphadenopathy. IMPRESSION: 1. Mild osteoarthritis of the right hip. Tearing of the right acetabular labrum. 2. Mild osteoarthritis of the left hip. 3. 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 Small amount of fluid in the right subgluteus minimus bursa. 4. Small amount of free fluid in the pelvis. 5. No fracture or stress reaction. Dictated by Humberto Garcia MD @ 06/06/2022 1:15:30 PM (Electronically Signed)
--- NOTE | 2022-06-06 08:28 | CRLHL7_ITS ---
For Patients: As a result of the Century Cures Act, medical imaging exams and procedure reports are released immediately into your electronic medical record. You may view this report before your referring provider. If you have questions, please contact your health care provider. Indication: mets to brain or stroke Technique: Noncontrast sagittal T1, axial FLAIR, T2 turbo spine echo, and diffusion weighted images. Supplemental post contrast T1 weighted axial and coronal sequences are provided after administration of 15 mL gadolinium-based IV contrast. Comparison: No prior studies available for comparison at this institution. Findings: No mass or mass effect. No midline shift. No hydrocephalus. No diffusion restriction to suggest acute ischemia. 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 Mild generalized parenchymal volume loss. Bilateral pseudophakia. No pathologic enhancement to suggest intracranial metastasis. Scattered foci of T2/FLAIR signal hyperintensity in the subchondral matter nonspecific but typical for chronic microangiopathic changes. Multiple small T2 hyperintense lesions in the bilateral parotid glands are nonspecific but may represent intraparotid cysts. No pathologic enhancement of the brain parenchyma, meninges, skull base, or calvarium. Impression : 1. No acute intracranial abnormality. 2. No pathologic enhancement to suggest intracranial metastases. 3. Multiple scattered foci of T2/FLAIR signal hyperintensity in the supratentorial subcortical white matter are nonspecific but typical for chronic microangiopathy changes. 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 4. Mild parenchymal volume loss. Dictated by Travon Teixeira MD @ 06/06/2022 1:42:13 PM (Electronically Signed)
[2022-06-06 11:00] VITALS: PULSE 61; RESP 18
[2022-06-06 11:10] LABS: Troponin I* 0.21 ng/mL (0.01-0.04)
[2022-06-06] MEDS: ASPIRIN 81 MG TAB.CHEW 324 MG PO (12:57)
[2022-06-06] MEDS: CEFEPIME HCL 2 GM in 0.9 % SODIUM CHLORIDE Mini-bag 100 ML IVPB ×2 (12:57→19:57)
[2022-06-06] MEDS: IPRAT-ALBUT 0.5-2.5 MG/3 ML NEB 1 NEB IH ×3 (13:00→21:55)
[2022-06-06] MEDS: LORazepam 2 MG/ML inj IVP (13:43)
[2022-06-06] MEDS: TRAMADOL HCL 50 MG TABLET PO (13:43)
[2022-06-06 14:21] VITALS: BP 133/63; PULSE 69; RESP 24; TEMP 36.6; O2SAT 92
[2022-06-06 15:00] VITALS: BP 137/70; PULSE 61; RESP 18; RESP 24; TEMP 36.5; O2SAT 91; O2SAT 92
--- NOTE | 2022-06-06 15:31 | P.IMPN_ITS ---
Progress Note: A&P Assessment and plan (1) Acute respiratory failure, unspecified whether with hypoxia or hypercapnia: Problem details: -I did broaden her antibiotic coverage secondary to her mental status today and what appears to be expanding pneumonia now bilateral. She also has an increasi ng oxygen demand. However, her labs are improving. She had been on ceftriaxone, azithromycin and doxycycline. I switched today to cefepime and vancomycin. I did also move her to the unit. I would like to continue DuoNebs, vibratory PEEP, ISP and close monitoring for ARDS or respiratory compromise/failure. Status: Acute (2) Demand ischemia: Problem details: Trans thoracic echocardiogram, reassuring. EKG bradycardic but otherwise reassuring. No chest pain. Troponin on 06/06/2022 did peak at 0.21 was given 324 mg of chewable aspirin, will continue this with 81 mg per day. No Plavix started. May consider outpatient cardiology follow-up. Status: Acute (3) Pneumonia: Problem details: As above. Widening Antibiotic coverage Status: Acute (4) Abnormal LFTs (liver function tests): Problem details: Likely from hepatic congestion or transaminitis from current infection. Will trend. I have not yet ordered a ultrasound as her numbers are down trending. However I will keep this on my radar. Status: Acute (5) Hypothyroidism: Problem details: Continue current outpatient levothyroxine dosing Status: Acute (6) Hyponatremia: Problem details: Trended follow Status: Acute (7) Weakness: Problem details: Have therapies work with her Status: Acute (8) Trochanteric bursitis, right hip: Problem details: Corticosteroid bursa injection 06/06/2022 with [facility]. Patient is extremely sensitive to pain medications, opioids and tramadol, benzodiazepine she becomes very groggy for hours. I am controlling her pain with Toradol, scheduled Tylenol and recent bursa injection. Status: Acute (9) AMS (altered mental status): Problem details: Very groggy this morning. She was able to do the months of the year backwards but it was slow, deliberate and she stalled out a couple of times. This was the same with counting sevens. A brain MRI was normal for age. I suspect she is mildly encephalopathic from her infection and opioid/benzo pain meds Status: Acute Subjective Date Seen: 01/13/23 Interval history: Daily Progress Note - Hospital Medicine #: 3 CC: Pneumonia, weakness, right hip pain OVERNIGHT UPDATES FROM STAFF & MED, LAB, IMAGING UPDATES -Patient's main concern has continued to be her right hip. She relates that she is stoic, not typically bothered by pain and this has been incredibly painful for her. Keeping in mind, there has been no injury or overuse that she is aware of. Pelvic CT from admission did not reveal any abnormal findings in the right hip. I did order a right hip MRI today. Remains afebrile. Blood pressure 133/63 137/70. Pulse 61, respiratory rate 18. Pulse ox 91% on 1-2 L. NOT PREVIOUSLY ON OXYGEN AND MORE OXYGEN DEPENDENT TO DAY. -CBC reflects a downtrending WBC, down trending mild anemia, stabilized platelet count. -pH is normal -electrolytes and renal function are normal -calcium is running low, I can replace this at 1.10 -iron deficient -LFTs are all down trending Troponin, elevated again today but normal on the 04 of June. -BNP uptrending some. Echo reviewed. -albumin is dropping -CRP and procalcitonin are down trending BLOOD CULTURES DRAWN TODAY; WELL AFTER ANTIBIOTICS CXR this am Chest x-ray this morning 1. Persistent dense airspace consolidation throughout the left lung, similar compared to prior. 2. New faint patchy airspace opacity throughout the right lung, suspicious for pneumonia. Right hip MRI 1. Mild osteoarthritis of the right hip. Tearing of the right acetabular labrum. 2. Mild osteoarthritis of the left hip. 3. 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 Small amount of fluid in the right subgluteus minimus bursa. 4. Small amount of free fluid in the pelvis. 5. No fracture or stress reaction. I also ordered brain MRI given her subtle but noticeable mental status change/somnolence. This showed Brain MRI 1. No acute intracranial abnormality. 2. No pathologic enhancement to suggest intracranial metastases. 3. Multiple scattered foci of T2/FLAIR signal hyperintensity in the supratentorial subcortical white matter are nonspecific but typical for chronic microangiopathy changes. 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 4. Mild parenchymal volume loss. I reviewed her chest abdomen pelvis from admission FROM ADMISSION, notably: -Left upper lobe consolidation with associated small left pleural effusion concerning for pneumonia. Recommend unenhanced chest CT in 3 months after appropriate medical therapy to document resolution and to assess for underlying malignant potential. -As it regards her elevated troponin: There has been no chest pain. EKG was reassuring for sinus bradycardia without signs of ischemia. Echocardiogram yesterday was extremely reassuring. No valvular abnormalities. Some very mild LVH. Normal EF normal left and right systolic function. Her rate has been normal. Trending this troponin she noted a bump again 3 hours later to 0.21. The evening of 06/06/2022 it is now down trending. She continues to be without chest pain or hemodynamic instability. No New fevers. -I did discuss the right hip MRI with Dr. Dawson and Doe arellano PA. -outpatient physical therapy will be the most help for her. Doe did administer a trochanteric bursa corticosteroid injection. With no complications. Objective: Vitals: see above Lungs: difficult to assess the left side; breath sounds are distant. moving air well on the right - Cardiac: S1S2. right hip - tender over the greater trochanter Disposition/Potential discharge - Likely to return to previous living situation. Total time is 35 minutes with greater than 50% spent in counseling and coordination of care. Exam Const: Vital Signs, click to edit/add: Vital Signs - 24 hr 06/05/22 15:45 06/05/22 15:45 06/05/22 20:34 Temperature 98.3 F 98 F Pulse Rate [Pulse Oximeter] 66 66 Respiratory Rate 18 18 Blood Pressure [Le ft Arm] Blood Pressure [Ri ght Arm] 132/71 141/69 H Pulse Oximetry 88 88 90 Oxygen Delivery Me thod Room Air Room Air Nasal Cannula Oxygen Flow Rate 1 06/05/22 23:00 06/05/22 23:00 06/05/22 23:00 Temperature 98 F Pulse Rate [Pulse Oximeter] 62 62 Respiratory Rate 18 18 18 Blood Pressure [Le ft Arm] 146/64 H Blood Pressure [Ri ght Arm] Pulse Oximetry 93 93 Oxygen Delivery Me thod Nasal Cannula Nasal Cannula Oxygen Flow Rate 2 2 06/06/22 03:00 06/06/22 14:21 06/06/22 15:00 Temperature 97.7 F 97.9 F Pulse Rate [Pulse Oximeter] 61 69 Respiratory Rate 18 24 24 Blood Pressure [Le ft Arm] 133/63 Blood Pressure [Ri ght Arm] 129/56 L Pulse Oximetry 93 92 92 Oxygen Delivery Me thod Nasal Cannula Nasal Cannula Nasal Cannula Oxygen Flow Rate 2 2 2 Labs Labs: Laboratory Results - last 24 hr 06/06/22 06/06/22 06/06/22 05:58 05:58 05:58 WBC 8.13 RBC 3.88 L Hgb 11.5 L Hct 34.5 MCV 89 MCH 30 MCHC 33 Plt Count 189 INR 0.94 VBG pH VBG pCO2 VBG pO2 VBG HCO3 Sodium 136 Potassium 4.9 Chloride 112 Carbon Dioxide 20 BUN 21 Creatinine 0.9 Estimated Creat Clear 47.53 Estimated GFR 66 Glucose 100 Calcium 7.5 L Ionized Calcium Donta Iron TIBC % Saturation Total Bilirubin 0.5 GGT 154 H AST 80 H ALT 35 Alkaline Phosphatase 367 H Troponin I 0.14 H* C-Reactive Protein 15.9 H NT-Pro-B Natriuret Pep 2830 Total Protein 5.4 L Albumin 2.2 L Lipase 153 Procalcitonin 0.74 H 06/06/22 06/06/22 06/06/22 05:58 05:58 10:20 WBC RBC Hgb Hct MCV MCH MCHC Plt Count INR VBG pH 7.330 VBG pCO2 43 VBG pO2 32.2 VBG HCO3 23 Sodium Potassium Chloride Carbon Dioxide BUN Creatinine Estimated Creat Clear Estimated GFR Glucose Calcium Ionized Calcium Donta 1.10 L Iron 21 L TIBC 132 L % Saturation 16 L Total Bilirubin GGT AST ALT Alkaline Phosphatase Troponin I 0.21 H* C-Reactive Protein NT-Pro-B Natriuret Pep Total Protein Albumin Lipase Procalcitonin
--- NOTE | 2022-06-06 15:42 | PC.NURSE ---
Andreia by Dr. Cloud. EKG completed by primary RN at bedside. Juan M supportive and vigilant at pt's bedside. Declined breakfast tray. Portable CXR at bedside. MRI questionnaire completed by primary RN. Troponin level drawn stat. Pt off of the floor via cart until 1230 pm for MRI of head and right leg/hip. Dtr Diya arrived from [place], [place] mid morning. Pt had blood cultures drawn when she returned to her room. Medications given by Winnie Hill RN and then pt moved to CCU-4 for unit status @ 13:30 and report given to Nicole Arias RN.
[2022-06-06] MEDS: LACTATED RINGERS 1000 ML 1,000 ML 500 ML IV (16:14)
[2022-06-06 17:48] LABS: Troponin I* 0.18 ng/mL (0.01-0.04)
--- NOTE | 2022-06-06 17:52 | REH.OT ---
OT: Verbal order received by 06/05/22 and eval held today due to medical work up with elevated troponins, MRI of hip and brain. Will check status in am and eval when appropriate.
--- NOTE | 2022-06-06 19:26 | PC.NURSE ---
End of shift-- Pleasant and cooperative, alert and oriented patient moved to CCU this afternoon. VSS and pt is afebrile. SPO2 maintained >90% on 2L per n.c. She c/o pain in her right hip that was greatly improved following injection by ortho at bedside. Pain appears well managed at this time. LS coarse with expiratory rhonchi throughout and pt has frequent, non-productive cough. Telemetry shows NSR. She denied nausea, but appetite is poor and pt ate only a vanilla ice cream this evening. BS+ x4, but pt stated no BM for 3 days. She was up to the bedside commode with assist of 1-2, belt and walker and tolerated it fairly well. She did not urinate from [id number] today and MD was notified. Bladder scan this afternoon showed only 86ml. Pt was given bolus of LR per MD order and afterward voided 600ml of jazmin colored urine this evening. and daughter are at bedside and appear loving and supportive. Report to CASS Wade.
[2022-06-06 19:45] VITALS: BP 126/65; PULSE 60; RESP 20; TEMP 36.3; O2SAT 90
[2022-06-06] MEDS: ENOXAPARIN 40 MG/0.4 ML INJ SUBCUT (21:54)
[2022-06-06 23:00] VITALS: BP 136/66; PULSE 62; PULSE 70; RESP 20; TEMP 36.7; O2SAT 91
[2022-06-07] VITALS (9 sets, daily range): BP systolic 128–156; BP diastolic 66–90; PULSE 51–66; RESP 16–24; TEMP 36.2–36.8; O2SAT 90–93
[2022-06-07] MEDS: ACETAMINOPHEN 325 MG TABLET 975 MG PO ×4 (00:20→18:52)
[2022-06-07] MEDS: CEFEPIME HCL 2 GM in 0.9 % SODIUM CHLORIDE Mini-bag 100 ML IVPB ×3 (03:15→19:42)
--- NOTE | 2022-06-07 04:26 | PC.NURSE ---
Shift note 19-23: Pt more alert, responds slower when first waking, family feels pt closer to baseline. Up to BSC w/ SBA and walker, moving well, rating R hip pain 1/10 since injection, only requiring scheduled Tylenol and ice to site, appears to rest comfortably. Lungs with scattered crackles in bases and exp rhonchi t/o, sats low 90's on 2L. Pt drinking well, denies any nausea. Tele reads SR/SB.
[2022-06-07] MEDS: IPRAT-ALBUT 0.5-2.5 MG/3 ML NEB 1 NEB IH ×5 (06:23→21:49)
[2022-06-07] MEDS: LEVOTHYROXINE 100 MCG TABLET PO (06:24)
[2022-06-07 06:46] LABS: HCO3 VBG 20 mmol/L (21-28); Ionized Calcium* 1.09 mmol/L (1.11-1.30); PCO2 VBG 40 mmHG (40-50); PO2 VBG 40.2 mmHG (25-47); pH VBG 7.316 (7.32-7.43)
[2022-06-07 07:05] LABS: Hematocrit 34.7 % (33.0-51.0); Hemoglobin* 11.6 gm/dL (12.0-16.0); Mean Corpuscular HGB Conc 33 gm/dL (32-36); Mean Corpuscular Hemoglobin 30 pg (26-34); Mean Corpuscular Volume 89 fL (80-100); Platelet Count* 201 K/uL (140-440); Red Blood Count 3.92 m/uL (4.00-5.20); White Blood Count* 7.87 K/uL (4.50-11.00)
[2022-06-07 07:18] LABS: Albumin* 2.2 g/dL (3.3-5.0); Chloride* 113 mmol/L (96-114)
[2022-06-07 07:19] LABS: Sodium* 134 mmol/L (135-149)
[2022-06-07 07:21] LABS: Alanine Aminotransferase* 37 U/L (4-35); Alkaline Phosphatase* 395 U/L (40-150); Aspartate Amino Transferase* 86 U/L (12-35); Bilirubin Total* 0.4 mg/dL (0.1-1.5); Blood Urea Nitrogen* 18 mg/dL (7-30); Carbon Dioxide* 18 mmol/L (20-32); Creatinine* 0.8 mg/dL (0.5-1.5); Est. Creatinine Clearance* 47.53; Estimated Glomerular Filt Rate 76 ml/min; Gamma Glutamyl Transpeptidase* 226 U/L (8-55); Glucose* 144 mg/dL (60-115); Total Protein* 5.5 g/dL (6.0-8.3)
[2022-06-07 07:22] LABS: Calcium* 7.3 mg/dL (8.4-10.6)
[2022-06-07 07:24] LABS: Slide Review Reflex No
[2022-06-07 07:36] LABS: Procalcitonin* 0.91 ng/mL (<0.50)
[2022-06-07 07:40] LABS: C Reactive Protein* 15.3 mg/dL (0.5-1.0); NT Pro B Type NatriureticPept* 4540 pg/mL; Troponin I* 0.11 ng/mL (0.01-0.04)
[2022-06-07] MEDS: 0.9 % SODIUM CHLORIDE 1000 ml 1,000 ML 100 ML IV ×2 (08:36→20:41)
[2022-06-07] MEDS: KETOROLAC 30 MG/ML inj IVP (09:24)
[2022-06-07] MEDS: TRAMADOL HCL 50 MG TABLET PO ×2 (11:09→21:58)
--- NOTE | 2022-06-07 14:48 | PM.IMPN1 ---
Progress Note: A&P Assessment and plan (1) Acute respiratory failure, unspecified whether with hypoxia or hypercapnia: Problem details: -continue on broader antibiotic coverage as initiated yesterday secondary to her mental status and what appears to be expanding pneumonia now bilateral. Her oxygen demands are stabilizing. Her labs are improving. She had been on ceftriaxone, azithromycin and doxycycline. I switched today to cefepime and vancomycin. I did also move her to the unit. I would like to continue DuoNebs, vibratory PEEP, ISP and close monitoring for ARDS or respiratory compromise/failure. Status: Acute (2) Demand ischemia: Problem details: Trans thoracic echocardiogram, reassuring. EKG bradycardic but otherwise reassuring. No chest pain. Troponin on 06/06/2022 did peak at 0.21 was given 324 mg of chewable aspirin, will continue this with 81 mg per day. No Plavix started. May consider outpatient cardiology follow-up. Status: Acute (3) Pneumonia: Problem details: As above. Widening Antibiotic coverage Status: Acute (4) Abnormal LFTs (liver function tests): Problem details: Likely from hepatic congestion or transaminitis from current infection. Will trend. Status: Acute Assessment and Plan: Will order abdominal ultrasound (5) Hypothyroidism: Problem details: Continue current outpatient levothyroxine dosing Status: Acute (6) Hyponatremia: Problem details: Trended follow Status: Acute (7) Weakness: Problem details: Have therapies work with her Status: Acute (8) Trochanteric bursitis, right hip: Problem details: Corticosteroid bursa injection 06/06/2022 with [facility]. Patient is extremely sensitive to pain medications, opioids and tramadol, benzodiazepine she becomes very groggy for hours. I am controlling her pain with Toradol, scheduled Tylenol and recent bursa injection. Status: Acute (9) AMS (altered mental status): Problem details: Less groggy this morning. A brain MRI was normal for age. I suspect she is mildly encephalopathic mainly from her infection and less so from opioid/benzo pain meds. Status: Acute Plan 1. Reviewed with patient and . 2. Answered their questions. 3. Per the request, I shared detailed information about patient's lab results with them. 4. Continue with supportive efforts. 5. Patient and are agreeable to above stated plans and recommendations. Time Spent With Patient Total time spent: 40 minutes Subjective Time Seen by Provider: 08:30 Date Seen: 06/07/22 Interval history: Daily Progress Note - Hospital Medicine #: 4 CC: Pneumonia, delirium, weakness, right hip pain OVERNIGHT UPDATES FROM STAFF & MED, LAB, IMAGING UPDATES -Patient's previous main concern was her right hip - no longer problematic for her at this time. She relates that she is stoic, not typically bothered by pain and this has been incredibly painful for her. Keeping in mind, there has been no injury or overuse that she is aware of. Pelvic CT from admission did not reveal any abnormal findings in the right hip. MRI revealed only osteoarthritis. Remains afebrile. Blood pressure 133/63 137/70. Pulse 61, respiratory rate 18. Pulse ox 91% on 1-2 L. NOT PREVIOUSLY ON OXYGEN AND MORE OXYGEN DEPENDENT TODAY. -CBC reflects a downtrending WBC, down trending mild anemia, stabilized platelet count. -pH is normal -electrolytes and renal function are normal -calcium is running low, I can replace this at 1.10 -iron deficient -LFTs are all down trending Troponin, slowly normalizing. -BNP normalizing. Echo reviewed. -albumin is dropping -CRP and procalcitonin are elevated BLOOD CULTURES DRAWN TODAY; WELL AFTER ANTIBIOTICS CXR 1. Persistent dense airspace consolidation throughout the left lung, similar compared to prior. 2. New faint patchy airspace opacity throughout the right lung, suspicious for pneumonia. Right hip MRI 1. Mild osteoarthritis of the right hip. Tearing of the right acetabular labrum. 2. Mild osteoarthritis of the left hip. 3. 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 Small amount of fluid in the right subgluteus minimus bursa. 4. Small amount of free fluid in the pelvis. 5. No fracture or stress reaction. I also ordered brain MRI given her subtle but noticeable mental status change/somnolence. This showed Brain MRI 1. No acute intracranial abnormality. 2. No pathologic enhancement to suggest intracranial metastases. 3. Multiple scattered foci of T2/FLAIR signal hyperintensity in the supratentorial subcortical white matter are nonspecific but typical for chronic microangiopathy changes. 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 4. Mild parenchymal volume loss. I reviewed her chest abdomen pelvis from admission FROM ADMISSION, notably: -Left upper lobe consolidation with associated small left pleural effusion concerning for pneumonia. Recommend unenhanced chest CT in 3 months after appropriate medical therapy to document resolution and to assess for underlying malignant potential. -As it regards her elevated troponin: There has been no chest pain. EKG was reassuring for sinus bradycardia without signs of ischemia. Echocardiogram was extremely reassuring. No valvular abnormalities. Some very mild LVH. Normal EF normal left and right systolic function. Her rate has been normal. Trending this troponin she noted a bump again 3 hours later to 0.21. The evening of 06/06/2022 it is now down trending. She continues to be without chest pain or hemodynamic instability. No New fevers. -We did discuss the right hip MRI with Dr. Dawson and Lou. -outpatient physical therapy will be the most help for her. Doe did administer a trochanteric bursa corticosteroid injection. With no complications. Exam Narrative: Exam Narrative: Awake. Talkative. Somewhat slow to respond to questions. Appropriate. Alert, oriented to self, place, able to be reoriented to time and situation. She recognizes that the last several days have been cognitively difficult for her. Lungs seemingly clear at this time. Heart tones with regular rhythm. Abdomen with active bowel sounds. Extremities without edema. No focal motor neurologic deficits. Skin is warm, dry, intact. Const: Vital Signs, click to edit/add: Vital Signs - 24 hr 06/06/22 15:00 06/06/22 15:00 06/06/22 15:00 Temperature 97.7 F Pulse Rate Pulse Rate [Pulse Oximeter] 61 61 Respiratory Rate 24 18 18 Blood Pressure [Ri [facility] Arm] 137/70 Pulse Oximetry 92 91 Oxygen Delivery Me thod Nasal Cannula Nasal Cannula Oxygen Flow Rate 2 2 06/06/22 19:45 06/06/22 19:45 06/06/22 23:00 Temperature 97.4 F L Pulse Rate 62 Pulse Rate [Pulse Oximeter] 60 Respiratory Rate 20 20 Blood Pressure [Ri t Arm] 126/65 Pulse Oximetry 90 Oxygen Delivery Me thod Nasal Cannula Oxygen Flow Rate 2 06/06/22 23:00 06/06/22 23:00 06/06/22 23:00 Temperature 98.1 F Pulse Rate Pulse Rate [Pulse Oximeter] 70 Respiratory Rate 20 20 20 Blood Pressure [Ri t Arm] 136/66 Pulse Oximetry 91 91 Oxygen Delivery Me thod Nasal Cannula Nasal Cannula Oxygen Flow Rate 2 2 06/07/22 03:15 06/07/22 03:15 06/07/22 07:00 Temperature 97.5 F L 97.9 F Pulse Rate Pulse Rate [Pulse Oximeter] 57 L 58 L Respiratory Rate 18 18 16 Blood Pressure [Ri ght Arm] 156/72 H 134/90 H Pulse Oximetry 93 91 Oxygen Delivery Me thod Nasal Cannula Nasal Cannula Oxygen Flow Rate 2 2 06/07/22 07:00 06/07/22 08:34 06/07/22 07:00 Temperature 97.9 F Pulse Rate Pulse Rate [Pulse Oximeter] 58 L Respiratory Rate 16 18 Blood Pressure [Ri ght Arm] Pulse Oximetry 91 Oxygen Delivery Me thod Nasal Cannula Oxygen Flow Rate 2 06/07/22 07:05 06/07/22 11:00 06/07/22 11:00 Temperature 97.1 F L Pulse Rate 55 L Pulse Rate [Pulse Oximeter] 61 61 Respiratory Rate 22 22 Blood Pressure [Ri ght Arm] 154/71 H Pulse Oximetry 93 Oxygen Delivery Me thod Nasal Cannula Oxygen Flow Rate 3 Documenting provider has reviewed patient's vital signs: yes Labs Labs: Laboratory Results - last 24 hr 06/06/22 06/07/22 06/07/22 16:27 06:10 06:10 WBC 7.87 RBC 3.92 L Hgb 11.6 L Hct 34.7 MCV 89 MCH 30 MCHC 33 Plt Count 201 VBG pH VBG pCO2 VBG pO2 VBG HCO3 Sodium 134 L Potassium 5.0 Chloride 113 Carbon Dioxide 18 L BUN 18 Creatinine 0.8 Estimated Creat Clear 47.53 Estimated GFR 76 Glucose 144 H Calcium 7.3 L Ionized Calcium Donta Total Bilirubin 0.4 GGT 226 H AST 86 H ALT 37 H Alkaline Phosphatase 395 H Troponin I 0.18 H* 0.11 H* C-Reactive Protein 15.3 H NT-Pro-B Natriuret Pep 4540 Total Protein 5.5 L Albumin 2.2 L Procalcitonin 0.91 H 06/07/22 06:10 WBC RBC Hgb Hct MCV MCH MCHC Plt Count VBG pH 7.316 L VBG pCO2 40 VBG pO2 40.2 VBG HCO3 20 L Sodium Potassium Chloride Carbon Dioxide BUN Creatinine Estimated Creat Clear Estimated GFR Glucose Calcium Ionized Calcium Donta 1.09 L Total Bilirubin GGT AST ALT Alkaline Phosphatase Troponin I C-Reactive Protein NT-Pro-B Natriuret Pep Total Protein Albumin Procalcitonin
--- NOTE | 2022-06-07 15:06 | CRLHL7_ITS ---
For Patients: As a result of the Century Cures Act, medical imaging exams and procedure reports are released immediately into your electronic medical record. You may view this report before your referring provider. If you have questions, please contact your health care provider. CLINICAL HISTORY: Abnormal LFTs FINDINGS: The patient`s liver is of normal size and has uniform echogenicity. There is a normal appearance of the hepatic IVC and proximal abdominal aorta. There is no evidence of ascites. Cholelithiasis. The gallbladder wall measures 3 mm in thickness. The common bile duct is of normal size and measures 3 mm in diameter at the level of the fredrick hepatis. The pancreas appears normal. There is no evidence of a stone or hydronephrosis within the right kidney. The right kidney measures 11.2 cm in length. IMPRESSION: Cholelithiasis. Dictated by Aimee Barnhart MD @ 06/07/2022 4:33:47 PM (Electronically Signed)
--- NOTE | 2022-06-07 19:34 | PC.NURSE ---
End of shift-- Pt has been pleasant, cooperative, alert and oriented, but remains very drowsy today. VSS and pt is afebrile. SPO2 maintained >90% on 2L per n.c. at rest. With exertion, sats noted to drop as low as 86% on 2L and RR increased to 30-36bpm. O2 increased to 4L per n.c. while pt recovers. She continues to complain of pain in right hip and now occasionally in left ribs which she rated as high as 6-7 out of 10. Pain appears well managed with Tylenol, Tramadol and Toradol today. Telemetry shows NSR. LS coarse and diminished with deep expiratory rhonchi throughout. Pt continues to have a dry cough, but was able to produce a small amount of sputum this evening. BS+ x4, pt denied nausea, but appetite remains poor and pt has only had bites/sips today with encouragement. She was up to the recliner and BR today with 1-2 assist and tolerated it fair. Pt became SOB and exhausted from exertion. Pt had abdominal US at bedside this afternoon and tolerated it well. Report to CASS Wade.
[2022-06-07] MEDS: ENOXAPARIN 40 MG/0.4 ML INJ SUBCUT (21:49)
[2022-06-08] VITALS (10 sets, daily range): BP systolic 133–179; BP diastolic 63–80; PULSE 52–94; RESP 18–181; TEMP 36.5–36.9; O2SAT 89–94
[2022-06-08] MEDS: ACETAMINOPHEN 325 MG TABLET 975 MG PO ×4 (00:21→18:55)
[2022-06-08] MEDS: CEFEPIME HCL 2 GM in 0.9 % SODIUM CHLORIDE Mini-bag 100 ML IVPB ×3 (02:48→19:27)
--- NOTE | 2022-06-08 04:27 | PC.NURSE ---
Shift note -: Pt fatigues easily although staying awake for longer periods, engaging in conversation w/ staff and family. Walking into BR w/ A1 and walker, strength and endurance improving slowly. One episode of 5/10 R hip pain for which Ultram was given w/ stated effectiveness otherwise scheduled Tylenol and ice effective in pain control. Lungs w/ exp rhonchi, diligent w/ aerobika use, remains on 2L for sats low 90's. Tele reads SB w/o ectopy.
[2022-06-08 05:41] LABS: Hematocrit 33.4 % (33.0-51.0); Hemoglobin* 11.1 gm/dL (12.0-16.0); Mean Corpuscular HGB Conc 33 gm/dL (32-36); Mean Corpuscular Hemoglobin 30 pg (26-34); Mean Corpuscular Volume 89 fL (80-100); Platelet Count* 225 K/uL (140-440); Red Blood Count 3.75 m/uL (4.00-5.20); White Blood Count* 9.25 K/uL (4.50-11.00)
[2022-06-08 05:44] LABS: Slide Review Reflex No
[2022-06-08 06:06] LABS: Albumin* 2.2 g/dL (3.3-5.0); Chloride* 116 mmol/L (96-114)
[2022-06-08 06:07] LABS: Potassium* 4.7 mmol/L (3.6-5.1); Sodium* 135 mmol/L (135-149)
[2022-06-08 06:09] LABS: Aspartate Amino Transferase* 84 U/L (12-35); Bilirubin Direct* 0.3 mg/dL (0.0-0.5); Bilirubin Total* 0.4 mg/dL (0.1-1.5); Blood Urea Nitrogen* 23 mg/dL (7-30); Carbon Dioxide* 16 mmol/L (20-32); Creatinine* 0.8 mg/dL (0.5-1.5); Est. Creatinine Clearance* 47.53; Estimated Glomerular Filt Rate 76 ml/min; Total Protein* 5.4 g/dL (6.0-8.3)
[2022-06-08 06:10] LABS: Alanine Aminotransferase* 37 U/L (4-35); Alkaline Phosphatase* 387 U/L (40-150); Calcium* 7.3 mg/dL (8.4-10.6); Glucose* 111 mg/dL (60-115)
[2022-06-08 06:12] LABS: C Reactive Protein* 6.1 mg/dL (0.5-1.0)
[2022-06-08] MEDS: LEVOTHYROXINE 100 MCG TABLET PO (06:28)
[2022-06-08] MEDS: IPRAT-ALBUT 0.5-2.5 MG/3 ML NEB 1 NEB IH ×4 (06:28→18:50)
[2022-06-08] MEDS: 0.9 % SODIUM CHLORIDE 1000 ml 1,000 ML 100 ML IV (06:29)
--- NOTE | 2022-06-08 09:27 | CRLHL7_ITS ---
For Patients: As a result of the Century Cures Act, medical imaging exams and procedure reports are released immediately into your electronic medical record. You may view this report before your referring provider. If you have questions, please contact your health care provider. INDICATION: Labored breathing. History of pneumonia. Check for fluid. TECHNIQUE: Volumetric helical scanning of the thorax was performed without IV contrast material. Coronal and sagittal reconstructions were obtained. COMPARISON: Chest/abdomen/pelvis CT of 06/04/2022. FINDINGS: The consolidative left upper lobe pneumonia has increased since the previous examination. There is increased atelectasis in the left lower lobe with possible pneumonia. New patchy infiltrates have developed in the right upper and lower lobes. There is no obvious airway abnormality. There is a left pleural effusion of small to moderate size which is increased from the previous study. There is a small right pleural effusion which is also increased. There is grossly unchanged borderline mediastinal lymphadenopathy. There is no obvious hilar adenopathy. The heart size is normal. Calcified coronary arterial plaque is again demonstrated. Images of the upper abdomen are unremarkable. IMPRESSION: 1. Consolidative left upper lobe pneumonia increased, increased left lower lobe atelectasis with possible infiltrate as well as new patchy infiltrates in the right upper and lower lobes. 2. Small to moderate left-sided pleural effusion and small right pleural effusion, both increased. 3. Stable borderline mediastinal lymphadenopathy. Please note that all CT scans at this facility use dose modulation, iterative reconstruction, and/or weight-based dosing when appropriate to reduce radiation dose to as low as reasonably achievable. Dictated by Te Alexandre MD @ 06/08/2022 11:15:34 AM (Electronically Signed)
[2022-06-08] MEDS: KETOROLAC 30 MG/ML inj IVP (10:06)
[2022-06-08 10:24] LABS: NT Pro B Type NatriureticPept* 4430 pg/mL
--- NOTE | 2022-06-08 15:14 | PM.IMPN1 ---
Progress Note: A&P Assessment and plan (1) Acute respiratory failure, unspecified whether with hypoxia or hypercapnia: Problem details: -continue on broader antibiotic coverage as initiated yesterday secondary to her mental status and what appears to be expanding pneumonia now bilateral. Her oxygen demands are stabilizing. Her labs are improving. She had been on ceftriaxone, azithromycin and doxycycline. I switched today to cefepime and vancomycin. I did also move her to the unit. I would like to continue DuoNebs, vibratory PEEP, ISP and close monitoring for ARDS or respiratory compromise/failure. Status: Acute Assessment and Plan: 1. Recommend we initiate CPAP therapy today. Reviewed the same with the patient her . Answered their questions. They are agreeable. 2. Asked respiratory therapy to assist us with setting up CPAP. 3. May need to consider referral for flexible bronchoscopy in the future if her condition is not improving. (2) Demand ischemia: Problem details: Trans thoracic echocardiogram, reassuring. EKG bradycardic but otherwise reassuring. No chest pain. Troponin on 06/06/2022 did peak at 0.21 was given 324 mg of chewable aspirin, will continue this with 81 mg per day. No Plavix started. May consider outpatient cardiology follow-up. Status: Acute Assessment and Plan: This stabilized. (3) Pneumonia: Problem details: As above. Widening Antibiotic coverage Status: Acute Assessment and Plan: Stable on broader spectrum coverage. (4) Abnormal LFTs (liver function tests): Problem details: Likely from hepatic congestion or transaminitis from current infection. Will trend. Status: Acute Assessment and Plan: No worse or better. (5) Hypothyroidism: Problem details: Continue current outpatient levothyroxine dosing Status: Acute (6) Hyponatremia: Problem details: Trended follow Status: Acute (7) Weakness: Problem details: Have therapies work with her Status: Acute (8) Trochanteric bursitis, right hip: Problem details: Corticosteroid bursa injection 06/06/2022 with [facility]. Patient is extremely sensitive to pain medications, opioids and tramadol, benzodiazepine she becomes very groggy for hours. I am controlling her pain with Toradol, scheduled Tylenol and recent bursa injection. Status: Acute (9) AMS (altered mental status): Problem details: Less groggy this morning. A brain MRI was normal for age. I suspect she is mildly encephalopathic mainly from her infection and less so from opioid/benzo pain meds. Status: Acute (10) Protein-calorie malnutrition: Status: Acute Assessment and Plan: Will have dietary work with her. (11) Diastolic heart failure with preserved ejection fraction: Status: Acute Plan 1. Had a niki discussion with the patient and her . Answered their questions. 2. Patient agreeable to proceed with CPAP at this juncture. 3. Continue with other supportive efforts as presently instituted 4. Will attempt diuresis with furosemide, I believe she does have diastolic heart failure. Time Spent With Patient Total time spent: 45 minutes Subjective Time Seen by Provider: 09:00 Date Seen: 06/08/22 Interval history: Daily Progress Note - Hospital Medicine Day #: 5 CC: Pneumonia, delirium, weakness, right hip pain OVERNIGHT UPDATES FROM STAFF & MED, LAB, IMAGING UPDATES -Patient's previous main concern was her right hip - no longer problematic for her at this time. Pelvic CT from admission did not reveal any abnormal findings in the right hip. MRI revealed only osteoarthritis. Remains afebrile. Requiring oxygen supplementation via nasal cannula at low flow. CXR 1. Persistent dense airspace consolidation throughout the left lung, similar compared to prior. 2. New faint patchy airspace opacity throughout the right lung, suspicious for pneumonia. Right hip MRI 1. Mild osteoarthritis of the right hip. Tearing of the right acetabular labrum. 2. Mild osteoarthritis of the left hip. 3. 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 Small amount of fluid in the right subgluteus minimus bursa. 4. Small amount of free fluid in the pelvis. 5. No fracture or stress reaction. I also ordered brain MRI given her subtle but noticeable mental status change/somnolence. This showed Brain MRI 1. No acute intracranial abnormality. 2. No pathologic enhancement to suggest intracranial metastases. 3. Multiple scattered foci of T2/FLAIR signal hyperintensity in the supratentorial subcortical white matter are nonspecific but typical for chronic microangiopathy changes. 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 4. Mild parenchymal volume loss. I reviewed her chest abdomen pelvis from admission FROM ADMISSION, notably: -Left upper lobe consolidation with associated small left pleural effusion concerning for pneumonia. Recommend unenhanced chest CT in 3 months after appropriate medical therapy to document resolution and to assess for underlying malignant potential. -As it regards her elevated troponin: There has been no chest pain. EKG was reassuring for sinus bradycardia without signs of ischemia. Echocardiogram was extremely reassuring. No valvular abnormalities. Some very mild LVH. Normal EF normal left and right systolic function. Her rate has been normal. Trending this troponin she noted a bump again 3 hours later to 0.21. She continues to be without chest pain or hemodynamic instability. CT scan of chest without contrast 1. Consolidative left upper lobe pneumonia increased, increased left lower lobe atelectasis with possible infiltrate as well as new patchy infiltrates in the right upper and lower lobes. 2. Small to moderate left-sided pleural effusion and small right pleural effusion, both increased. 3. Stable borderline mediastinal lymphadenopathy. No New fevers. -We did discuss the right hip MRI with Dr. Dawson and Lou. -outpatient physical therapy will be the most help for her. Doe did administer a trochanteric bursa corticosteroid injection. With no complications. Patient overall does not feel she is making improvements or getting worse on the 1 hand. On the other hand she acknowledges that she is not nearly as painful as she was or dyspneic as she was. Notes she still has decreased appetite. Notes she could only exert herself so much due to increasing dyspnea. Exam Narrative: Exam Narrative: Although she appears comfortable she appears tired. She is tachypneic at rest with respirations of 20 to 24 breaths per minute. More awake alert and talkative today. Decreased breath sounds left side compared to right. Scattered rhonchi. Rales on the left compared to the right. Heart tones with regular rhythm, normal S1-S2. Abdomen with active bowel sounds, soft, nontender. Extremities without edema. Moves all 4 extremities. Skin is warm, dry, intact. Const: Vital Signs, click to edit/add: Vital Signs - 24 hr 06/07/22 15:33 06/07/22 20:00 06/07/22 20:00 Temperature 98.2 F Pulse Rate 64 Pulse Rate [Pulse Oximeter] 66 Respiratory Rate 20 20 Blood Pressure [Ri ght Arm] 128/73 Pulse Oximetry 92 Oxygen Delivery Me thod Nasal Cannula Oxygen Flow Rate 2 Fraction of Inspir ed Oxygen 06/08/22 00:00 06/08/22 03:00 06/08/22 03:00 Temperature 97.7 F Pulse Rate Pulse Rate [Pulse Oximeter] 55 L Respiratory Rate 18 18 18 Blood Pressure [Ri ght Arm] 143/64 H Pulse Oximetry 94 Oxygen Delivery Me thod Nasal Cannula Oxygen Flow Rate 2 Fraction of Inspir ed Oxygen 06/08/22 07:00 06/08/22 07:00 06/08/22 07:00 Temperature 97.9 F Pulse Rate 67 Pulse Rate [Pulse Oximeter] 59 L Respiratory Rate 20 20 Blood Pressure [Ri ght Arm] 133/80 Pulse Oximetry 91 91 Oxygen Delivery Me thod Nasal Cannula Nasal Cannula Oxygen Flow Rate 2 2 Fraction of Inspir ed Oxygen 06/08/22 07:00 06/08/22 11:00 06/08/22 14:04 Temperature 98.0 F Pulse Rate Pulse Rate [Pulse Oximeter] 59 L 57 L Respiratory Rate 20 181 H Blood Pressure [Ri ght Arm] 157/74 H Pulse Oximetry 92 Oxygen Delivery Me thod Nasal Cannula Oxygen Flow Rate 2 Fraction of Inspir ed Oxygen 0.30 06/08/22 11:00 Temperature Pulse Rate Pulse Rate [Pulse Oximeter] 57 L Respiratory Rate 18 Blood Pressure [Ri ght Arm] Pulse Oximetry Oxygen Delivery Me thod Oxygen Flow Rate Fraction of Inspir ed Oxygen Documenting provider has reviewed patient's vital signs: yes Labs Labs: Laboratory Results - last 24 hr 06/08/22 06/08/22 04:59 04:59 WBC 9.25 RBC 3.75 L Hgb 11.1 L Hct 33.4 MCV 89 MCH 30 MCHC 33 Plt Count 225 Sodium 135 Potassium 4.7 Chloride 116 H Carbon Dioxide 16 L BUN 23 Creatinine 0.8 Estimated Creat Clear 47.53 Estimated GFR 76 Glucose 111 Calcium 7.3 L Total Bilirubin 0.4 Direct Bilirubin 0.3 AST 84 H ALT 37 H Alkaline Phosphatase 387 H C-Reactive Protein 6.1 H NT-Pro-B Natriuret Pep 4430 Total Protein 5.4 L Albumin 2.2 L
[2022-06-08] MEDS: FUROSEMIDE 10 MG/ML inj 20 MG IVP (15:59)
[2022-06-08] MEDS: SODIUM CHLORIDE 0.9 % (FLUSH) 10 ML SYRINGE 5 ML IVF (16:15)
--- NOTE | 2022-06-08 18:43 | RESP.RT ---
Patient has a white out Left lung on CT scan. Alternating CPAP for the pressure to recruit alveoli, and the HFNC to keep the mucus from drying out. These therapies should be alternated throughout the day.
--- NOTE | 2022-06-08 19:41 | PC.NURSE ---
End of shift-- Pt has been pleasant and cooperative, alert and oriented. Less drowsy today, but still sleepy throughout the afternoon. Pt remains slow to respond and slow to move. VSS and pt is afebrile. SPO2 maintained >90% on 2L per n.c. throughout the day. Pt went to CT this morning and tolerated it well. See EMR for details. This afternoon pt was placed on CPAP at 10 with 30% FiO2. Pt appeared to tolerate it well, however, her family expressed a great deal of anxiety regarding CPAP machine. came to desk and stated, Please let the doctor know that we would like to initiate a transfer in care to [facility]. Dr. Parkinson was notified and did contact [facility]. [facility] was unable to accept patient at this time. Meanwhile pt stated, I don't want to transfer to another hospital. Pt transitioned to high flow n.c. at 30L with 30% FiO2 this evening and is tolerating it well. Telemetry shows NSR to sinus bradycardia. LS diminished particularly on left with expiratory rhonchi throughout. Fine crackles auscultated in posterior right base. Pt continues to have a cough, but has been able to produce small amounts of yellow brown sputum today. She was up to BR, chair and commode with assist of 1 and walker and tolerated it fair. Pt does become SOB with exertion. Family is at bedside at all times and appear loving and supportive. Report to [facility].
[2022-06-08] MEDS: ENOXAPARIN 40 MG/0.4 ML INJ SUBCUT (20:28)
[2022-06-09] VITALS (17 sets, daily range): BP systolic 120–173; BP diastolic 72–95; PULSE 61–91; RESP 14–28; TEMP 36.6–36.9; O2SAT 90–95; BMI 27.4
[2022-06-09] MEDS: FUROSEMIDE 10 MG/ML inj 20 MG IVP ×2 (00:16→09:52)
[2022-06-09] MEDS: IPRAT-ALBUT 0.5-2.5 MG/3 ML NEB 1 NEB IH ×5 (02:55→21:25)
[2022-06-09] MEDS: CEFEPIME HCL 2 GM in 0.9 % SODIUM CHLORIDE Mini-bag 100 ML IVPB ×3 (02:55→19:00)
--- NOTE | 2022-06-09 03:34 | PC.NURSE ---
Addendum entered by Gisele Hardy RN 06/09/22 06:52: PRN ATIVAN GIVEN AROUND 0430 PATIENT COULD NOT SLEEP AND RESTLESS, PATIENT WOULD WAKE UP AND COUGH AND START CRYING FOR HER THIS IS HORRIBLE, I CANNOT DO THIS,PER PATIENT THAT WORKED GREAT I GOT 1.5 HOURS OF SLEEP, WHEN CAN I HAVE THAT AGAIN, WHEN ASKED PATIENT IF SHE FELT ANXIOUS SHE DECLINED, Addendum entered by Gisele Hardy RN 06/09/22 06:46: PATIENT DECLINING WEIGHT UNTIL GETTING UP THIS MORNING DUE TO RIGHT HIP PAIN, TYLENOL GIVEN AND ICE PACK TO SITE. OCCASIONAL DRY HEAVES, PATIENT DECLINES FEELING NAUSEATED AND DECLINED NEED FOR ANY MEDICATION. Original Note: PATIENT COOPERATIVE, VERY FATIGUED, UP TO BSC WITH A1 TOLERATING FAIRLY, PATIENT GETS VERY FATIGUED WITH ACTIVITY, LUNG SOUNDS NOTED TO BE WET SEE ASSESSMENT, SOME SWELLING NOTED TO BILATERAL KNEES AND PER PATIENT HANDS SWOLLEN I CANNOT EVEN GET MY RINGS OFF, UPDATED, DC IV FLUIDS, IV LASIX X1 AND LOPEZ CATHETER FOR ADEQUATE I&O, PATIENT DECLINING PAIN BUT EXPRESSING I AM FEELING WORSE WITH EVERY NEW DAY, AT BEDSIDE AND VERY SUPPORTIVE HE REASSURED PATIENT YOU ARE LOOKING BETTER AND MORE AWAKE THAN PREVIOUSLY, ALTERNATING CPAP AND HFNC, TELE [facility]IN[facility] WILLIAMS.
[2022-06-09] MEDS: LORazepam 2 MG/ML inj IVP (04:27)
[2022-06-09] MEDS: SODIUM CHLORIDE 0.9 % (FLUSH) 10 ML SYRINGE 5 ML IVF ×3 (04:28→19:49)
[2022-06-09] MEDS: ACETAMINOPHEN 325 MG TABLET 975 MG PO ×3 (06:07→21:24)
[2022-06-09] MEDS: LEVOTHYROXINE 100 MCG TABLET PO (06:08)
[2022-06-09 07:10] LABS: HCO3 VBG 19 mmol/L (21-28); PCO2 VBG 29 mmHG (40-50); PO2 VBG 44.4 mmHG (25-47); pH VBG 7.425 (7.32-7.43)
[2022-06-09 07:39] LABS: Chloride* 112 mmol/L (96-114); Sodium* 134 mmol/L (135-149)
[2022-06-09 07:42] LABS: Blood Urea Nitrogen* 23 mg/dL (7-30); Carbon Dioxide* 17 mmol/L (20-32); Creatinine* 0.8 mg/dL (0.5-1.5); Est. Creatinine Clearance* 47.53; Estimated Glomerular Filt Rate 76 ml/min; Glucose* 92 mg/dL (60-115)
[2022-06-09 07:43] LABS: Calcium* 7.8 mg/dL (8.4-10.6); Magnesium* 2.1 mg/dL (1.5-2.6)
[2022-06-09 08:03] LABS: NT Pro B Type NatriureticPept* 7460 pg/mL; Troponin I* 0.17 ng/mL (0.01-0.04)
[2022-06-09 10:16] LABS: Procalcitonin* 0.57 ng/mL (<0.50)
--- NOTE | 2022-06-09 10:16 | PM.ORCN ---
History of Present Illness HPI Time Seen by Provider: 15:00 Date Seen: 06/06/22 Consult date: 06/06/22 Requesting physician: Flor Cloud Consult reason: other Chief complaint: Right lateral hip pain, x 1 week Narrative: Orthopedic consultation requested by hospitalist. Pleasant 76-year-old female presents with approximately 1 week duration right lateral hip pain. No known injury, change in activities, or incident. Insidious onset over right lateral hip. Worse if lying on that side, or with activity. They eventually presented to urgent care. Trochanteric bursitis was diagnosed, patient was unable to receive injection that day as the urgent care does not provide the injection. Encouraged to follow-up with an orthopedic provider. They were scheduled to see an orthopedic service in the [facility], but due to the bad weather, they did not go. Eventually presented to [facility] Emergency Department on 06/04/2022. During care for her right hip, she had noted to staff loss of appetite, poor oral intake, nausea/vomiting, and generalized weakness. Patient received extensive workup, and was admitted to med/surg for pneumonia. Even with patient's more extensive diagnoses regarding her cardiopulmonary, her biggest complaint continues to be the right lateral hip pain. Per hospitalist, her pain appears to be out of proportion. Pain is sharp in nature. Never experienced before. Denies any hip joint or groin pain. No radiating pain from the lumbar spine or down the leg. She cannot recall increased activity or change in activity, but they were celebrating over the holidays with family as well as hosting a alliance party. Only a few days after this alliance party did the symptoms present. Review of Systems Narrative: No recent fevers, chills, or aches; no numbness or tingling distally [facility] Medical History Hyperlipidemia Social History Non-prescribed substance use: denies use Meds Home Medications and Allergies Home Medications Medication Instructions Recorded Confirmed Type levothyroxine 100 mcg tablet 100 mcg PO DAILY 06/04/22 06/04/22 History simvastatin 10 mg tablet 10 mg PO HS 06/04/22 06/04/22 History Allergies Allergy/AdvReac Type Severity Reaction Status Date / Time Penicillins Allergy Verified 06/04/22 11:33 Sulfa (Sulfonamide Allergy Verified 06/04/22 11:33 Antibiotics) Ortho Exam Narrative Exam Narrative: General: Well-developed, well-nourished, A&Ox 3, no acute obvious distress, but patient appears sleepy, and in fact falls asleep between conversations Pulmonary: Breathing pattern regular, even, with wheezing evident and mild labored breathing noted. On supplemental oxygen Right Hip: Patient is supine in bed, no ambulation observed No obvious swelling, ecchymosis, or erythema. Painful palpation over the greater trochanteric region, as well as when palpating insertion/distal third gluteus medius/minimus tendon and muscle-tendinous junction; minimal pain with resisted hip abduction Hip flexion flexion 90? Hip extension 20? (negative Terri test) Internal rotation 30? no pain External rotation 45? no pain No pain with abduction or adduction Negative Tariq's test Negative straight leg raise for tension 2+ Dorsalis Pedis and Posterior Tibial pulses, intact dermatomes and myotomes distally with 5/5 motor strength dorsal and plantar flexion. Const Vital Signs, click to edit/add: Vital Signs - 24 hr 06/08/22 11:00 06/08/22 14:04 06/08/22 11:00 Temperature 98.0 F Pulse Rate Pulse Rate [Pulse Oximeter] 57 L 57 L Respiratory Rate 181 H 18 Blood Pressure [Left Arm] Blood Pressure [Right Arm] 157/74 H Pulse Oximetry 92 Oxygen Delivery Method Nasal Cannula Oxygen Flow Rate 2 Fraction of Inspired Oxygen 0.30 06/08/22 15:00 06/08/22 15:00 06/08/22 15:30 Temperature 98.2 F Pulse Rate 58 L Pulse Rate [Pulse Oximeter] 67 Respiratory Rate 20 20 Blood Pressure [Left Arm] 150/64 H Blood Pressure [Right Arm] Pulse Oximetry 92 Oxygen Delivery Method Nasal Cannula Oxygen Flow Rate 2 Fraction of Inspired Oxygen 92 06/08/22 15:00 06/08/22 18:40 06/09/22 09:13 Temperature Pulse Rate Pulse Rate [Pulse Oximeter] 67 Respiratory Rate 20 Blood Pressure [Left Arm] Blood Pressure [Right Arm] Pulse Oximetry Oxygen Delivery Method Oxygen Flow Rate 30 Fraction of Inspired Oxygen 30 0.30 06/09/22 09:13 06/08/22 19:00 06/08/22 19:00 Temperature 98.5 F Pulse Rate Pulse Rate [Pulse Oximeter] 66 Respiratory Rate 18 18 Blood Pressure [Left Arm] Blood Pressure [Right Arm] 144/63 H Pulse Oximetry 89 Oxygen Delivery Method Nasal Cannula Oxygen Flow Rate 30 30 Fraction of Inspired Oxygen 0.30 30 06/08/22 20:40 06/08/22 22:34 06/08/22 23:00 Temperature Pulse Rate 52 L Pulse Rate [Pulse Oximeter] 94 Respiratory Rate 22 Blood Pressure [Left Arm] Blood Pressure [Right Arm] Pulse Oximetry Oxygen Delivery Method Oxygen Flow Rate Fraction of Inspired Oxygen 30 06/08/22 23:00 06/08/22 23:00 06/09/22 02:00 Temperature 98.5 F Pulse Rate Pulse Rate [Pulse Oximeter] 64 Respiratory Rate 22 22 Blood Pressure [Left Arm] Blood Pressure [Right Arm] 179/79 H Pulse Oximetry 90 90 Oxygen Delivery Method Room Air Room Air Oxygen Flow Rate Fraction of Inspired Oxygen 30 06/09/22 03:00 06/09/22 03:00 06/09/22 06:00 Temperature 98.2 F Pulse Rate Pulse Rate [Pulse Oximeter] 62 62 Respiratory Rate 14 14 Blood Pressure [Left Arm] Blood Pressure [Right Arm] 164/80 H Pulse Oximetry 90 Oxygen Delivery Method Room Air Oxygen Flow Rate 30 Fraction of Inspired Oxygen 30 30 06/09/22 08:23 Temperature Pulse Rate Pulse Rate [Pulse Oximeter] Respiratory Rate Blood Pressure [Left Arm] Blood Pressure [Right Arm] Pulse Oximetry Oxygen Delivery Method Oxygen Flow Rate Fraction of Inspired Oxygen 30 Results Labs Labs: Laboratory Results - last 48 hr 06/08/22 06/08/22 06/09/22 04:59 04:59 07:00 WBC 9.25 RBC 3.75 L Hgb 11.1 L Hct 33.4 MCV 89 MCH 30 MCHC 33 Plt Count 225 VBG pH VBG pCO2 VBG pO2 VBG HCO3 Sodium 135 134 L Potassium 4.7 4.0 Chloride 116 H 112 Carbon Dioxide 16 L 17 L BUN 23 23 Creatinine 0.8 0.8 Estimated Creat Clear 47.53 47.53 Estimated GFR 76 76 Glucose 111 92 Calcium 7.3 L 7.8 L Magnesium 2.1 Total Bilirubin 0.4 Direct Bilirubin 0.3 AST 84 H ALT 37 H Alkaline Phosphatase 387 H Troponin I 0.17 H* C-Reactive Protein 6.1 H NT-Pro-B Natriuret Pep 4430 7460 Total Protein 5.4 L Albumin 2.2 L 06/09/22 07:00 WBC RBC Hgb Hct MCV MCH MCHC Plt Count VBG pH 7.425 VBG pCO2 29 L VBG pO2 44.4 VBG HCO3 19 L Sodium Potassium Chloride Carbon Dioxide BUN Creatinine Estimated Creat Clear Estimated GFR Glucose Calcium Magnesium Total Bilirubin Direct Bilirubin AST ALT Alkaline Phosphatase Troponin I C-Reactive Protein NT-Pro-B Natriuret Pep Total Protein Albumin Diagnostic results Hip MRI: report reviewed (Bilateral hip) and image reviewed (Bilateral hip) Additional Comments: Bilateral hip MRI with, without contrast ordered by different provider [facility] dated 06/06/2022. These images were reviewed and corroborated with the radiology report showin. Right hip undersurface tearing anterior-superior labrum 2. Right hip Moderate grade cartilage loss superior medial femoral head and acetabulum with mild subarticular marrow edema superior medial acetabulum 3. Right hip Physiological amount of joint fluid 4. Right chronic low-grade tear distal gluteus minimus tendon small amount of fluid in the right sub gluteal minimus bursa, tendons intact 5. Mild osteoarthritic changes left hip 6. No fracture or stress reaction, no bone lesion Assessment and Plan Assessment and plan (1) Acute respiratory failure, unspecified whether with hypoxia or hypercapnia: Problem comment: -continue on broader antibiotic coverage secondary to her mental status and what appears to be expanding pneumonia, now bilateral. Her oxygen demands are stabilizing. Still tachypneic at rest with respirations of 24-28. She had been on ceftriaxone, azithromycin and doxycycline. She was switched to cefepime and vancomycin. She is in the unit. Continue DuoNebs, vibratory PEEP, ISP and close monitoring for ARDS or respiratory compromise/failure. Ventilation seemingly improving with CPAP alternating with high-flow humidified oxygen. Status: Acute Total time spent: Total time spent is greater than 50% in coordination of care (as documented) at patient's floor/unit and/or counseling patient: (2) Demand ischemia: Problem comment: Trans thoracic echocardiogram, reassuring. EKG bradycardic but otherwise reassuring. No chest pain. Troponin on 06/06/2022 did peak at 0.21 was given 324 mg of chewable aspirin, will continue this with 81 mg per day. No Plavix started. May consider outpatient cardiology follow-up. Status: Acute Total time spent: Total time spent is greater than 50% in coordination of care (as documented) at patient's floor/unit and/or counseling patient: (3) Pneumonia: Problem comment: As above. Widening Antibiotic coverage Status: Acute Total time spent: Total time spent is greater than 50% in coordination of care (as documented) at patient's floor/unit and/or counseling patient: (4) Abnormal LFTs (liver function tests): Problem comment: Likely from hepatic congestion or transaminitis from current infection. Will trend. Status: Acute Total time spent: Total time spent is greater than 50% in coordination of care (as documented) at patient's floor/unit and/or counseling patient: (5) Hypothyroidism: Problem comment: Continue current outpatient levothyroxine dosing Status: Acute Total time spent: Total time spent is greater than 50% in coordination of care (as documented) at patient's floor/unit and/or counseling patient: (6) Hyponatremia: Problem comment: Trended follow Status: Acute Total time spent: Total time spent is greater than 50% in coordination of care (as documented) at patient's floor/unit and/or counseling patient: (7) Weakness: Problem comment: Have therapies work with her Status: Acute Total time spent: Total time spent is greater than 50% in coordination of care (as documented) at patient's floor/unit and/or counseling patient: (8) AMS (altered mental status): Problem comment: Less groggy this morning. A brain MRI was normal for age. I suspect she is mildly encephalopathic mainly from her infection and less so from opioid/benzo pain meds. Status: Acute Total time spent: Total time spent is greater than 50% in coordination of care (as documented) at patient's floor/unit and/or counseling patient: (9) Protein-calorie malnutrition: Status: Acute Total time spent: Total time spent is greater than 50% in coordination of care (as documented) at patient's floor/unit and/or counseling patient: (10) Diastolic heart failure with preserved ejection fraction: Status: Acute Total time spent: Total time spent is greater than 50% in coordination of care (as documented) at patient's floor/unit and/or counseling patient: (11) Greater trochanteric pain syndrome of right lower extremity: Problem comment: With associated right hip chronic low-grade tear distal gluteus minimus tendon and likely tendinopathy. Right greater trochanteric bursa injection 06/06/2022 with [facility]. Patient is extremely sensitive to pain medications, opioids and tramadol, benzodiazepine she becomes very groggy for hours. I am controlling her pain with Toradol, scheduled Tylenol and recent bursa injection. Status: Acute Plan We had a thorough discussion regarding pathology. Non operative management most prudent regarding the right hip. Explained to both patient and patient's that this is treated conservatively with physical therapy, modified activities, oral NSAIDs. Physical therapy is mainstay treatment which includes strengthening. We also can consider corticosteroid injection to calm the inflammation in this area, thus relieving some pain. This injection will allow her to participate in therapy as well. The hip pain is more distracting, as she appears to be ignoring her other diagnoses, which are more grave at this time. Because of her extensive, acute problem list including pneumonia and cardiac strain, recommend right hip corticosteroid injection to help the discomfort, thus allowing the medical staff to focus on her greater medical problems without patient being distracted by the hip pain. Patient agrees to this plan. Risks, benefits, and alternatives to injection provided, including but not limited to: infection, needle encroachment on a nerve or vascular structure, or non sustaining symptom relief. Patient stated understanding, and elects to proceed with the injection. After patient written consent was obtained for right greater trochanteric region/gluteus medius/minimus insertion corticosteroid injection, the injection site was prepped with ChloraPrep. Landmarks identified, and Ethyl Chloride spray was used topically to numb the injection site. Then combination of 12mg celestone, and 20mg 1% lidocaine without epinephrine was injected into the right greater trochanteric bursal region as well as gluteus medius/minimus insertion using a Spinal needle (22G) without complication. Band aid applied. Procedure tolerated well without issue by patient. Post injection instructions provided. Patient will follow up with orthopedics as needed. We may repeat corticosteroid injection every 3-4 months as needed. Again, physical therapy is primary treatment, which she can receive in the outpatient setting. If her strength allows, she can receive physical therapy while in the hospital. Thank you for allowing me to participate in this patient's care.
[2022-06-09] MEDS: TRAMADOL HCL 50 MG TABLET PO (14:27)
--- NOTE | 2022-06-09 15:17 | P.IMPN_ITS ---
Progress Note: A&P Assessment and plan (1) Acute respiratory failure, unspecified whether with hypoxia or hypercapnia: Problem details: -continue on broader antibiotic coverage secondary to her mental status and what appears to be expanding pneumonia, now bilateral. Her oxygen demands are stab ilizing. Still tachypneic at rest with respirations of 24-28. She had been on ceftriaxone, azithromycin and doxycycline. She was switched to cefepime and vancomycin. She is in the unit. Continue DuoNebs, vibratory PEEP, ISP and close monitoring for ARDS or respiratory compromise/failure. Ventilation seemingly improving with CPAP alternating with high-flow humidified oxygen. Status: Acute Assessment and Plan: 1. I again called and discussed the case with the transfer center at [facility], [place], [place]. Today they declined acceptance indicating that patient does not have a [facility] number but has been assessed in the [employer] system in the past. They recommended that we attempt transferring to the [facility] system. 2. I called and spoke with the transfer staff at [facility]. I spoke with Dr. Víctor Kellogg, collection development librarian. He agreed she would do well to transfer to a progressive care unit, step-down unit. The transfer center staff indicated that they have no bed availability and that the patient will be placed on a waiting list. They indicated that the weight may be 4 hours or 4 days. They indicated that we may call back if her condition worsens. 3. I reviewed the above with the patient and her . They are agreeable. 4. Continue with current efforts for now. (2) Demand ischemia: Problem details: Trans thoracic echocardiogram, reassuring. EKG bradycardic but otherwise wagner ssuring. No chest pain. Troponin on 06/06/2022 did peak at 0.21 was given 324 mg of chewable aspirin, will continue this with 81 mg per day. No Plavix started. May consider outpatient cardiology follow-up. Status: Acute Assessment and Plan: Continues to be problematic at this juncture. Our main focus is on treating pulmonary problem at this juncture. (3) Pneumonia: Problem details: As above. Widening Antibiotic coverage Status: Acute (4) Abnormal LFTs (liver function tests): Problem details: Likely from hepatic congestion or transaminitis from current infection. Will trend. Status: Acute (5) Hypothyroidism: Problem details: Continue current outpatient levothyroxine dosing Status: Acute (6) Hyponatremia: Problem details: Trended follow Status: Acute (7) Weakness: Problem details: Have therapies work with her Status: Acute (8) AMS (altered mental status): Problem details: Less groggy this morning. A brain MRI was normal for age. I suspect she is mildly encephalopathic mainly from her infection and less so from opioid/benzo pain meds. Status: Acute (9) Protein-calorie malnutrition: Status: Acute Assessment and Plan: I have asked our import export clerk to work with patient and family. (10) Diastolic heart failure with preserved ejection fraction: Status: Acute Assessment and Plan: Responding well to diuresis efforts. Yesterday she received furosemide 20 mg IV x2 doses. Today I am administering furosemide 40 mg IV x1 dose and monitoring. 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 Right greater trochanteric bursa injection 06/06/2022 with [facility]. Patient is extremely sensitive to pain medications, opioids and tramadol, benzodiazepine she becomes very groggy for hours. I am controlling her pain with Toradol, scheduled Tylenol and recent bursa injection. Status: Acute Plan 1. Patient and and daughter agreeable to above stated plans and recommendations. Time Spent With Patient Total time spent: 50 minutes Subjective Time Seen by Provider: 09:00 Date Seen: 06/09/22 Interval history: Daily Progress Note - Hospital Medicine Day #: 6 CC: Pneumonia, delirium, weakness, right hip pain OVERNIGHT UPDATES FROM STAFF & MED, LAB, IMAGING UPDATES -Patient's previous main concern was her right hip - no longer problematic for her at this time. Pelvic CT from admission did not reveal any abnormal findings in the right hip. MRI revealed only osteoarthritis. -Working on tolerating CPAP. Alternating CPAP and High-Flow humidified O2. -Remains afebrile. Requiring oxygen supplementation via nasal cannula at low flow. CXR 1. Persistent dense airspace consolidation throughout the left lung, similar compared to prior. 2. New faint patchy airspace opacity throughout the right lung, suspicious for pneumonia. Right hip MRI 1. Mild osteoarthritis of the right hip. Tearing of the right acetabular labrum. 2. Mild osteoarthritis of the left hip. 3. 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 Small amount of fluid in the right subgluteus minimus bursa. 4. Small amount of free fluid in the pelvis. 5. No fracture or stress reaction. I also ordered brain MRI given her subtle but noticeable mental status change/s omnolence. This showed Brain MRI 1. No acute intracranial abnormality. 2. No pathologic enhancement to suggest intracranial metastases. 3. Multiple scattered foci of T2/FLAIR signal hyperintensity in the supratentorial subcortical white matter are nonspecific but typical for chronic microangiopathy changes. 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 4. Mild parenchymal volume loss. I reviewed her chest abdomen pelvis from admission FROM ADMISSION, notably: -Left upper lobe consolidation with associated small left pleural effusion concerning for pneumonia. Recommend unenhanced chest CT in 3 months after appropriate medical therapy to document resolution and to assess for underlying malignant potential. -As it regards her elevated troponin: There has been no chest pain. EKG was reassuring for sinus bradycardia without signs of ischemia. Echocardiogram was extremely reassuring. No valvular abnormalities. Some very mild LVH. Normal EF normal left and right systolic function. Her rate has been normal. Trending this troponin she noted a bump again 3 hours later to 0.21. She continues to be without chest pain or hemodynamic instability. CT scan of chest without contrast 06/08/2022 1. Consolidative left upper lobe pneumonia increased, increased left lower lobe atelectasis with possible infiltrate as well as new patchy infiltrates in the right upper and lower lobes. 2. Small to moderate left-sided pleural effusion and small right pleural effusion, both increased. 3. Stable borderline mediastinal lymphadenopathy. No New fevers. -We did discuss the right hip MRI with Dr. Dawson and Doe arellano PA. -outpatient physical therapy will be the most help for her. Doe did administer a trochanteric bursa corticosteroid injection. With no complications. Patient overall does not feel she is making improvements or getting worse on the 1 hand. On the other hand she acknowledges that she is not experiencing nearly as as much pain, and nor is she nearly as dyspneic as she was previously without support. Still trying to tolerate the CPAP and high-flow oxygen. Notes she still has decreased appetite. Notes she could only exert herself so much due to increasing dyspnea. Tpolerated a dose of lorasepam 0.25 mg and did get anxiety relief from this intervention. Exam Narrative: Exam Narrative: Awake. Appears anxious. Voice is soft. Articulate, cooperative. Slow to respond to questions at times. Alert, oriented to self, place, in part to time, in part to situation. Rales on left side but clear on the right. Scattered rhonchi clear with cough. No wheezing. Heart tones with regular rhythm, normal S1-S2. No murmur, gallop, or rub. Abdomen with active bowel sounds, soft, nontender. Extremities without edema. Skin is warm, dry, intact. No focal motor neurologic deficits. Does have generalized weakness. Const: Vital Signs, click to edit/add: Vital Signs - 24 hr 06/08/22 15:30 06/08/22 18:40 06/09/22 09:13 Temperature Pulse Rate 58 L Pulse Rate [Apical ] Pulse Rate [Pulse Oximeter] Respiratory Rate Blood Pressure [Ri ght Arm] Pulse Oximetry Oxygen Delivery Me thod Oxygen Flow Rate 30 Fraction of Inspir ed Oxygen 30 0.30 06/09/22 09:13 06/08/22 19:00 06/08/22 19:00 Temperature 98.5 F Pulse Rate Pulse Rate [Apical ] Pulse Rate [Pulse Oximeter] 66 Respiratory Rate 18 18 Blood Pressure [Ri ght Arm] 144/63 H Pulse Oximetry 89 Oxygen Delivery Me thod Nasal Cannula Oxygen Flow Rate 30 30 Fraction of Inspir ed Oxygen 0.30 30 06/08/22 20:40 06/08/22 22:34 06/08/22 23:00 Temperature Pulse Rate 52 L Pulse Rate [Apical ] Pulse Rate [Pulse Oximeter] 94 Respiratory Rate 22 Blood Pressure [Ri ght Arm] Pulse Oximetry Oxygen Delivery Me thod Oxygen Flow Rate Fraction of Inspir ed Oxygen 30 06/08/22 23:00 06/08/22 23:00 06/09/22 02:00 Temperature 98.5 F Pulse Rate Pulse Rate [Apical ] Pulse Rate [Pulse Oximeter] 64 Respiratory Rate 22 22 Blood Pressure [Ri ght Arm] 179/79 H Pulse Oximetry 90 90 Oxygen Delivery Me thod Room Air Room Air Oxygen Flow Rate Fraction of Inspir ed Oxygen 30 06/09/22 03:00 06/09/22 03:00 06/09/22 06:00 Temperature 98.2 F Pulse Rate Pulse Rate [Apical ] Pulse Rate [Pulse Oximeter] 62 62 Respiratory Rate 14 14 Blood Pressure [Ri ght Arm] 164/80 H Pulse Oximetry 90 Oxygen Delivery Me thod Room Air Oxygen Flow Rate 30 Fraction of Inspir ed Oxygen 30 30 06/09/22 08:23 06/09/22 08:23 06/09/22 08:23 Temperature 98.3 F Pulse Rate Pulse Rate [Apical ] Pulse Rate [Pulse Oximeter] 65 Respiratory Rate 28 H Blood Pressure [Ri ght Arm] 164/86 H Pulse Oximetry 91 91 Oxygen Delivery Me thod High Flow Nasal Ca nnula High Flow Nasal Ca nnula Oxygen Flow Rate Fraction of Inspir ed Oxygen 30 06/09/22 07:06 06/09/22 12:09 06/09/22 12:09 Temperature 97.8 F Pulse Rate 72 Pulse Rate [Apical ] Pulse Rate [Pulse Oximeter] 72 Respiratory Rate 20 Blood Pressure [Ri ght Arm] 120/95 H Pulse Oximetry 93 Oxygen Delivery Me thod High Flow Nasal Ca nnula Oxygen Flow Rate Fraction of Inspir ed Oxygen 30 06/09/22 08:23 06/09/22 12:09 06/09/22 14:50 Temperature Pulse Rate Pulse Rate [Apical ] 65 72 Pulse Rate [Pulse Oximeter] Respiratory Rate 28 H 20 Blood Pressure [Ri ght Arm] Pulse Oximetry Oxygen Delivery Me thod Oxygen Flow Rate Fraction of Inspir ed Oxygen 30 Documenting provider has reviewed patient's vital signs: yes Labs Labs: Laboratory Results - last 24 hr 06/09/22 06/09/22 07:00 07:00 VBG pH 7.425 VBG pCO2 29 L VBG pO2 44.4 VBG HCO3 19 L Sodium 134 L Potassium 4.0 Chloride 112 Carbon Dioxide 17 L BUN 23 Creatinine 0.8 Estimated Creat Clear 47.53 Estimated GFR 76 Glucose 92 Calcium 7.8 L Magnesium 2.1 Troponin I 0.17 H* NT-Pro-B Natriuret Pep 7460 Procalcitonin 0.57 H
--- NOTE | 2022-06-09 18:56 | PC.NURSE ---
Patient on HFNC while awake and CPAP during periods of rest/sleep. O2 sats maintained at 91-93%. Telemetry Sinus Bradycardia/NSR.
[2022-06-09] MEDS: ONDANSETRON 2 MG/ML inj 4 MG IVP (19:49)
[2022-06-09] MEDS: KETOROLAC 30 MG/ML inj IVP (19:49)
[2022-06-09] MEDS: ENOXAPARIN 40 MG/0.4 ML INJ SUBCUT (21:25)
--- NOTE | 2022-06-09 23:49 | PC.NURSE ---
Called [facility], no beds at this time.
[2022-06-10] VITALS (18 sets, daily range): BP systolic 141–154; BP diastolic 64–87; PULSE 58–79; RESP 18–22; TEMP 36.5–37; O2SAT 90–94
[2022-06-10] MEDS: ACETAMINOPHEN 160 MG/5 ML CUP 975 MG PO ×3 (02:49→15:42)
[2022-06-10] MEDS: CEFEPIME HCL 2 GM in 0.9 % SODIUM CHLORIDE Mini-bag 100 ML IVPB ×3 (02:50→18:43)
[2022-06-10] MEDS: TRAMADOL HCL 50 MG TABLET PO (03:50)
[2022-06-10] MEDS: IPRAT-ALBUT 0.5-2.5 MG/3 ML NEB 1 NEB IH ×5 (06:48→21:07)
[2022-06-10 06:59] LABS: HCO3 VBG 22 mmol/L (21-28); Lactate* 0.7 mmol/L (0.5-1.9); PCO2 VBG 34 mmHG (40-50); PO2 VBG 85.2 mmHG (25-47); pH VBG 7.409 (7.32-7.43)
[2022-06-10 07:03] LABS: Hematocrit 34.8 % (33.0-51.0); Hemoglobin* 11.5 gm/dL (12.0-16.0); Immature Granulocytes Abs Auto 0.19 K/uL (0.00-0.30); Immature Granulocytes Pct Auto 3.3 %; Lymphocytes Percent Auto 8.4 % (20-44); Mean Corpuscular HGB Conc 33 gm/dL (32-36); Mean Corpuscular Hemoglobin 29 pg (26-34); Mean Corpuscular Volume 89 fL (80-100); Monocytes Percent Auto 3.3 % (0.0-11.0); Platelet Count* 300 K/uL (140-440); RDW Coefficient of Variation % 16.1 % (11.5-15.5); Red Blood Count 3.92 m/uL (4.00-5.20); White Blood Count* 5.71 K/uL (4.50-11.00)
[2022-06-10 07:26] LABS: Albumin* 2.5 g/dL (3.3-5.0); Chloride* 111 mmol/L (96-114); Sodium* 134 mmol/L (135-149)
[2022-06-10 07:27] LABS: Potassium* 3.7 mmol/L (3.6-5.1)
[2022-06-10 07:28] LABS: Creatinine* 0.6 mg/dL (0.5-1.5); Est. Creatinine Clearance* 47.53; Estimated Glomerular Filt Rate 92 ml/min
[2022-06-10 07:29] LABS: Alanine Aminotransferase* 49 U/L (4-35); Alkaline Phosphatase* 478 U/L (40-150); Aspartate Amino Transferase* 102 U/L (12-35); Bilirubin Total* 0.6 mg/dL (0.1-1.5); Blood Urea Nitrogen* 19 mg/dL (7-30); Carbon Dioxide* 20 mmol/L (20-32); Glucose* 120 mg/dL (60-115); Total Protein* 5.8 g/dL (6.0-8.3)
[2022-06-10 07:30] LABS: Calcium* 7.7 mg/dL (8.4-10.6); Magnesium* 2.1 mg/dL (1.5-2.6); Phosphorus* 2.9 mg/dL (2.5-4.5)
[2022-06-10 07:32] LABS: C Reactive Protein* 4.6 mg/dL (0.5-1.0)
[2022-06-10 07:46] LABS: Procalcitonin* 0.36 ng/mL (<0.50)
[2022-06-10 07:51] LABS: Slide Review Reflex Yes
[2022-06-10 07:52] LABS: Slide Review Acceptable Review (Acceptable)
[2022-06-10] MEDS: LEVOTHYROXINE 100 MCG TABLET PO (07:55)
[2022-06-10 07:56] LABS: Troponin I* 0.09 ng/mL (0.01-0.04)
--- NOTE | 2022-06-10 08:10 | CRLHL7_ITS ---
For Patients: As a result of the Century Cures Act, medical imaging exams and procedure reports are released immediately into your electronic medical record. You may view this report before your referring provider. If you have questions, please contact your health care provider. INDICATION: Pneumonia TECHNIQUE: Chest 1 view COMPARISON: CT 06/08/2022 FINDINGS: Dense consolidative opacification left upper lobe/lingula unchanged. Left pleural effusion also similar. No pneumothorax. Patchy consolidative densities within the right lower lobe and right upper lobe also similar. Cardiomegaly. Trace right pleural effusion. IMPRESSION: Stable bilateral infiltrates and moderate left pleural effusion. Dictated by Travon Vera MD @ 06/10/2022 10:11:09 AM (Electronically Signed)
[2022-06-10] MEDS: SODIUM CHLORIDE 0.9 % (FLUSH) 10 ML SYRINGE 5 ML IVF ×2 (09:51→21:07)
[2022-06-10] MEDS: 0.9 % SODIUM CHLORIDE 250 ml IV (11:44)
--- NOTE | 2022-06-10 12:16 | RESP.RT ---
Patient sitting up in bed, appears comfortable, on HFNC FiO2 23%, Flow 25 Lpm. Patient was on BiPAP during night , rested well, returned to HFNC early this AM. Bilateral breath sounds; right diminished all vital with fine crackles, fair air movement, left upper lobe diminished with fine crackles less air movement noted over right, left lower lobe absent. Nebulizer given to patient with Aerobika inline, used well, producted fair non-productive cough. Patient will return to BiPAP overnight as tolerated.
--- NOTE | 2022-06-10 13:29 | PM.IMPN1 ---
Progress Note: A&P Assessment and plan (1) Acute respiratory failure, unspecified whether with hypoxia or hypercapnia: Problem details: -continue on broader antibiotic coverage secondary to her mental status and what appears to be expanding pneumonia, now bilateral. Her oxygen demands are stabilizing. Not nearly as tachypneic at rest. She had been on ceftriaxone, azithromycin and doxycycline. She was switched to cefepime and vancomycin. She is in the unit. Continue DuoNebs, vibratory PEEP, ISP and close monitoring for ARDS or respiratory compromise/failure. Ventilation improving with CPAP alternating with high-flow humidified oxygen. Status: Acute (2) Demand ischemia: Problem details: Trans thoracic echocardiogram, reassuring. EKG bradycardic but otherwise reassuring. No chest pain. Troponin on 06/06/2022 did peak at 0.21 was given 324 mg of chewable aspirin, will continue this with 81 mg per day. No Plavix started. May consider outpatient cardiology follow-up. Improving with stabilization of respiratory status. Status: Acute (3) Pneumonia: Problem details: As above. Widening Antibiotic coverage with cefepime and vancomycin at this time. Will add steroids to her regimen for few days only starting 06/10/2022. Status: Acute Assessment and Plan: Will add PPI prophylaxis because of being on steroids. Will start probiotics. (4) Abnormal LFTs (liver function tests): Problem details: Likely from hepatic congestion or transaminitis from current infection - more likely the former. Will trend. Status: Acute (5) Hypothyroidism: Problem details: Continue current outpatient levothyroxine dosing Status: Acute (6) Hyponatremia: Problem details: Trended follow Status: Acute (7) Weakness: Problem details: Have therapies work with her. Concern is that she is developing ICU-acquired weakness syndrome. Status: Acute Assessment and Plan: We attempt to increase activities as tolerated. If we can get her through this critical illness she may well call if I for inpatient physical rehabilitation efforts. (8) AMS (altered mental status): Problem details: Less groggy this morning. A brain MRI was normal for age. I suspect she is mildly encephalopathic mainly from her infection and less so from opioid/benzo pain meds. Status: Acute (9) Protein-calorie malnutrition: Status: Acute Assessment and Plan: Continue to work with her nutritional Services staff. 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 Right greater trochanteric bursa injection 06/06/2022 with [facility]. Patient is extremely sensitive to pain medications, opioids and tramadol, benzodiazepine she becomes very groggy for hours. I am controlling her pain with Toradol, scheduled Tylenol and recent bursa injection. Status: Acute Assessment and Plan: I spoke with our orthopedic surgery colleague, SARAH Azar working with Dr. Jerry, who will again see the patient either today or tomorrow for reassessment of this. Plan 1. I have been in talks with staff at [facility] transfer center about her since yesterday. They still have no bed availability at this time. Will continue to try to facilitate such in effort. 2. Reviewed my impressions with patient and her . 3. Answered their questions are satisfaction. 4. Continue with current efforts as specified above. 5. Should her condition worsen we will again call around and see if we can facilitate transfer to higher level of care to [facility] with tertiary services. Time Spent With Patient Total time spent: 40 minutes Subjective Time Seen by Provider: 07:30 Date Seen: 06/10/22 Interval history: Daily Progress Note - Hospital Medicine Day #: 7 CC: Pneumonia, delirium, weakness, right hip pain OVERNIGHT UPDATES FROM STAFF & MED, LAB, IMAGING UPDATES -she tells me she might have turned the corner and is starting to feel better now in terms of her thought process, ability to find words, and ability to articulate. She notice this round 1:00 a.m. today. -her main concern today is once again discomfort and pain but in her right leg and hip.. Pelvic CT from admission did not reveal any abnormal findings in the right hip. MRI revealed only osteoarthritis. -better tolerating alternating CPAP and High-Flow humidified O2. Now coughing up some sputum more so than previously. -Remains afebrile. Requiring oxygen supplementation via nasal cannula at low flow. CXR 1. Persistent dense airspace consolidation throughout the left lung, similar compared to prior. 2. New faint patchy airspace opacity throughout the right lung, suspicious for pneumonia. Right hip MRI 1. Mild osteoarthritis of the right hip. Tearing of the right acetabular labrum. 2. Mild osteoarthritis of the left hip. 3. 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 Small amount of fluid in the right subgluteus minimus bursa. 4. Small amount of free fluid in the pelvis. 5. No fracture or stress reaction. I also ordered brain MRI given her subtle but noticeable mental status change/somnolence. This showed Brain MRI 1. No acute intracranial abnormality. 2. No pathologic enhancement to suggest intracranial metastases. 3. Multiple scattered foci of T2/FLAIR signal hyperintensity in the supratentorial subcortical white matter are nonspecific but typical for chronic microangiopathy changes. 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 4. Mild parenchymal volume loss. I reviewed her chest abdomen pelvis from admission FROM ADMISSION, notably: -Left upper lobe consolidation with associated small left pleural effusion concerning for pneumonia. Recommend unenhanced chest CT in 3 months after appropriate medical therapy to document resolution and to assess for underlying malignant potential. -As it regards her elevated troponin: There has been no chest pain. EKG was reassuring for sinus bradycardia without signs of ischemia. Echocardiogram was extremely reassuring. No valvular abnormalities. Some very mild LVH. Normal EF normal left and right systolic function. Her rate has been normal. Trending this troponin she noted a bump again 3 hours later to 0.21. She continues to be without chest pain or hemodynamic instability. CT scan of chest without contrast 06/08/2022 1. Consolidative left upper lobe pneumonia increased, increased left lower lobe atelectasis with possible infiltrate as well as new patchy infiltrates in the right upper and lower lobes. 2. Small to moderate left-sided pleural effusion and small right pleural effusion, both increased. 3. Stable borderline mediastinal lymphadenopathy. No New fevers. She again notes that she is not nearly as dyspneic as she was previously without support. Better tolerating alternating CPAP and high-flow oxygen. Notes she still has decreased appetite, nevertheless is tolerating altered diet per Nutrition consultation. Notes she could only exert herself so much due to increasing dyspnea. Not as anxious today as she was yesterday. Exam Narrative: Exam Narrative: Sitting up in her bed with head of bed elevated about 45?. Appears comfortable and in no acute distress. Alert, oriented to self, place, time, situation. More talkative and articulate today than previously. Mood and affect are congruent. Voice not nearly as soft as it was previously. Has a more forceful cough productive of clear sputum. Rales bilaterally more so on the left than on the right. No wheezing or rhonchi. Heart tones with regular rhythm, normal S1-S2. No murmur, gallop, or rub. Abdomen with active bowel sounds, soft, nontender. Extremities without edema. Skin is warm, dry, intact. No focal motor neurologic deficits. Const: Vital Signs, click to edit/add: Vital Signs - 24 hr 06/09/22 14:50 06/09/22 15:47 06/09/22 15:47 Temperature 98.4 F Pulse Rate Pulse Rate [Apical ] 66 Pulse Rate [Pulse Oximeter] Respiratory Rate 20 Blood Pressure [Ri ght Arm] 173/75 H Pulse Oximetry 93 93 Oxygen Delivery Me thod High Flow Nasal Ca nnula High Flow Nasal Ca nnula Oxygen Flow Rate Fraction of Inspir ed Oxygen 30 06/09/22 15:02 06/09/22 18:51 06/09/22 15:47 Temperature Pulse Rate 63 Pulse Rate [Apical ] 66 Pulse Rate [Pulse Oximeter] Respiratory Rate 20 Blood Pressure [Ri ght Arm] Pulse Oximetry Oxygen Delivery Me thod Oxygen Flow Rate Fraction of Inspir ed Oxygen 30 06/09/22 19:49 06/09/22 19:00 06/09/22 20:00 Temperature 98 F 98.1 F Pulse Rate Pulse Rate [Apical ] 62 Pulse Rate [Pulse Oximeter] 91 Respiratory Rate 20 Blood Pressure [Ri ght Arm] 146/73 H Pulse Oximetry 91 Oxygen Delivery Me thod Oxygen Flow Rate Fraction of Inspir ed Oxygen 30 06/09/22 22:00 06/09/22 23:14 06/09/22 23:17 Temperature 98.1 F Pulse Rate Pulse Rate [Apical ] 61 Pulse Rate [Pulse Oximeter] Respiratory Rate 18 Blood Pressure [Ri ght Arm] 151/72 H Pulse Oximetry 95 Oxygen Delivery Me thod CPAP CPAP Oxygen Flow Rate Fraction of Inspir ed Oxygen 30 30 30 06/09/22 23:22 06/09/22 23:34 06/10/22 03:42 Temperature 98 F Pulse Rate 63 Pulse Rate [Apical ] 61 Pulse Rate [Pulse Oximeter] Respiratory Rate 22 18 Blood Pressure [Ri ght Arm] 150/77 H Pulse Oximetry 92 Oxygen Delivery Me thod High Flow Nasal Ca nnula Oxygen Flow Rate 30 Fraction of Inspir ed Oxygen 30 06/10/22 03:44 06/10/22 06:00 06/10/22 06:09 Temperature Pulse Rate Pulse Rate [Apical ] Pulse Rate [Pulse Oximeter] Respiratory Rate 18 Blood Pressure [Ri ght Arm] Pulse Oximetry 92 Oxygen Delivery Me thod High Flow Nasal Ca nnula Oxygen Flow Rate 30 Fraction of Inspir ed Oxygen 30 30 30 06/10/22 07:08 06/10/22 07:00 06/10/22 08:31 Temperature 97.7 F Pulse Rate 58 L Pulse Rate [Apical ] 60 Pulse Rate [Pulse Oximeter] Respiratory Rate 18 Blood Pressure [Ri ght Arm] 154/83 H Pulse Oximetry 92 Oxygen Delivery Me thod High Flow Nasal Ca nnula Oxygen Flow Rate Fraction of Inspir ed Oxygen 25 06/10/22 09:58 06/10/22 10:00 06/10/22 11:00 Temperature Pulse Rate Pulse Rate [Apical ] 68 Pulse Rate [Pulse Oximeter] 68 Respiratory Rate 22 Blood Pressure [Ri ght Arm] Pulse Oximetry Oxygen Delivery Me thod Oxygen Flow Rate Fraction of Inspir ed Oxygen 21 23 06/10/22 13:00 06/10/22 10:30 Temperature Pulse Rate Pulse Rate [Apical ] Pulse Rate [Pulse Oximeter] Respiratory Rate 20 Blood Pressure [Ri ght Arm] Pulse Oximetry 93 Oxygen Delivery Me thod High Flow Nasal Ca nnula Oxygen Flow Rate 25 Fraction of Inspir ed Oxygen 23 23 Documenting provider has reviewed patient's vital signs: yes Labs Labs: Laboratory Results - last 24 hr 06/10/22 06/10/22 06/10/22 06:25 06:25 06:25 WBC 5.71 RBC 3.92 L Hgb 11.5 L Hct 34.8 MCV 89 MCH 29 MCHC 33 RDW Coeff of Chidi 16.1 H Plt Count 300 Neut % (Auto) 85.0 H Lymph % (Auto) 8.4 L [place] % (Auto) 3.3 Eos % (Auto) 0.0 Baso % (Auto) 0.0 Neut # (Auto) 4.90 Lymph # (Auto) 0.50 L [place] # (Auto) 0.20 Eos # (Auto) 0.00 Baso # (Auto) 0.00 Diff Slide Review Acceptable Review VBG pH 7.409 VBG pCO2 34 L VBG pO2 85.2 H VBG HCO3 22 Sodium 134 L Potassium 3.7 Chloride 111 Carbon Dioxide 20 BUN 19 Creatinine 0.6 Estimated Creat Clear 47.53 Estimated GFR 92 Glucose 120 H Lactate 0.7 Calcium 7.7 L Phosphorus 2.9 Magnesium 2.1 Total Bilirubin 0.6 AST 102 H ALT 49 H Alkaline Phosphatase 478 H Troponin I 0.09 H* C-Reactive Protein 4.6 H Total Protein 5.8 L Albumin 2.5 L Procalcitonin 0.36 Imaging Chest x-ray: Attestation: I have reviewed the pertinent imaging results. Radiologist's impression: FINDINGS: Dense consolidative opacification left upper lobe/lingula unchanged. Left pleural effusion also similar. No pneumothorax. Patchy consolidative densities within the right lower lobe and right upper lobe also similar. Cardiomegaly. Trace right pleural effusion. IMPRESSION: Stable bilateral infiltrates and moderate left pleural effusion.
[2022-06-10] MEDS: LACTOBACILLUS ACIDOPHILUS 1 TABLET 2 TAB PO ×2 (13:33→18:36)
[2022-06-10] MEDS: METHYLPREDNISOLONE SOD SUCC 62.5 MG/ML (125) 125 MG IVP (15:43)
[2022-06-10] MEDS: OMEPRAZOLE 20 MG CAPSULE DR PO (15:43)
[2022-06-10] MEDS: TORSEMIDE 20 MG TABLET 40 MG PO (15:44)
[2022-06-10] MEDS: DOCUSATE SODIUM 10 MG/ML LIQUID 100 MG PO (18:37)
--- NOTE | 2022-06-10 19:31 | PC.NURSE ---
Shift Note [id number]: Pt improved today, intermittent moist cough with some yellow thick sputum. has been diligent assisting her to use aerobika frequently. HFNC 25LPM/23% FiO2 and SpO2 92%. This afternoon while using CPAP and sleeping pt had repeated apneic episodes briefly setting off alarms. Silas RT and MD updated. Pt to use bi-pap with settings fixed by RT at HS. Pt c/o constipation, Dulcolax supp given this evening and no BM at this time. Pain to right hip has been well controlled today with ice and scheduled Tylenol. Pt requesting 50mg Tramadol for HS.
[2022-06-10] MEDS: ENOXAPARIN 40 MG/0.4 ML INJ SUBCUT (21:06)
[2022-06-10] MEDS: ACETAMINOPHEN 500 MG TABLET PO (22:26)
[2022-06-11] VITALS (17 sets, daily range): BP systolic 144–150; BP diastolic 76–91; PULSE 63–79; RESP 18–22; TEMP 36.2–36.9; O2SAT 91–94
[2022-06-11] MEDS: CEFEPIME HCL 2 GM in 0.9 % SODIUM CHLORIDE Mini-bag 100 ML IVPB ×3 (02:35→20:07)
--- NOTE | 2022-06-11 06:00 | PC.NURSE ---
Shift note: Pt's urine output since yesterday 1500 to this morning 0600 is 7550 ml, the weight difference since yesterday morning is 9.7LB. Occasional productive cough, lung sounds clear, O2 sats 89-93% on HFNC 25L/23%. Pt was unable to tolerate BiPAP overnight, raised the head of the bed and sats remained on HFNC around 90%. Pt ambulates with SBA to the BS with minimum assistance. She is alert, easily awaken and talkative, she states she feels more like her normal self tonight. Hip pain 3-09/01, pt declined any interventions but ice application, she did not c/o pain at all this morning. Spouse at the bedside, supportive, assisted with cares.
[2022-06-11 06:30] LABS: HCO3 VBG 24 mmol/L (21-28); Lactate* 0.9 mmol/L (0.5-1.9); PCO2 VBG 29 mmHG (40-50); PO2 VBG 78.7 mmHG (25-47); pH VBG 7.531 (7.32-7.43)
[2022-06-11 06:42] LABS: Hematocrit 34.6 % (33.0-51.0); Hemoglobin* 11.8 gm/dL (12.0-16.0); Mean Corpuscular HGB Conc 34 gm/dL (32-36); Mean Corpuscular Hemoglobin 29 pg (26-34); Mean Corpuscular Volume 86 fL (80-100); Platelet Count* 345 K/uL (140-440); Red Blood Count 4.03 m/uL (4.00-5.20); White Blood Count* 2.74 K/uL (4.50-11.00)
[2022-06-11 06:44] LABS: Slide Review Reflex No
[2022-06-11 06:58] LABS: Albumin* 2.8 g/dL (3.3-5.0); Potassium* 3.2 mmol/L (3.6-5.1)
[2022-06-11 07:06] LABS: Alanine Aminotransferase* 49 U/L (4-35); Alkaline Phosphatase* 537 U/L (40-150); Aspartate Amino Transferase* 79 U/L (12-35); Bilirubin Direct* 0.3 mg/dL (0.0-0.5); Bilirubin Total* 0.6 mg/dL (0.1-1.5); Creatine Kinase* 91 U/L (41-117); Creatinine* 0.7 mg/dL (0.5-1.5); Est. Creatinine Clearance* 47.53; Estimated Glomerular Filt Rate 89 ml/min; Total Protein* 6.3 g/dL (6.0-8.3)
[2022-06-11 07:11] LABS: NT Pro B Type NatriureticPept* 7350 pg/mL
[2022-06-11] MEDS: LEVOTHYROXINE 100 MCG TABLET PO (08:17)
[2022-06-11] MEDS: LACTOBACILLUS ACIDOPHILUS 1 TABLET 2 TAB PO ×2 (08:17→12:08)
[2022-06-11] MEDS: OMEPRAZOLE 20 MG CAPSULE DR PO (08:17)
[2022-06-11] MEDS: IPRAT-ALBUT 0.5-2.5 MG/3 ML NEB 1 NEB IH (08:17)
[2022-06-11] MEDS: TORSEMIDE 20 MG TABLET 40 MG PO (08:18)
[2022-06-11] MEDS: SODIUM CHLORIDE 0.9 % (FLUSH) 10 ML SYRINGE 5 ML IVF (10:01)
[2022-06-11] MEDS: METHYLPREDNISOLONE SOD SUCC 40 MG/ML IVP (10:01)
--- NOTE | 2022-06-11 10:26 | RESP.RT ---
Patient resting in bed, appears comfortable. BBS with upper lobes fair air movement with fine crackles, right lower lobe diminished over uppers with more distinct crackles, left lower lobe very diminished air movement. Patient on HFNC, was placed on BiPAP during night, patient unable to tolerate BiPAP after hour or so and was returned to HFNC.
--- NOTE | 2022-06-11 10:37 | RESP.RT ---
Patient on Home CPAP last night, No oxygen bleed in, SaO2 remained >90%
[2022-06-11] MEDS: levoFLOXacin 750 MG TABLET PO (12:08)
[2022-06-11] MEDS: ACETAMINOPHEN 500 MG TABLET PO (12:08)
[2022-06-11] MEDS: POTASSIUM CHLORIDE 10 MEQ/100 ML PIGGYBACK 100 MEQ IVPB (12:10)
[2022-06-11] MEDS: 0.9 % SODIUM CHLORIDE 250 ml IV (12:11)
--- NOTE | 2022-06-11 14:40 | PC.NURSE ---
Patient was calm and cooperative during shift. Pt complained of minor right hip pain managed by ice pack and PRN medication see EMAR. Patient tolerated fluids well and pudding with medications. Pt has been assist of 1 with walker to commode or bathroom. Pt up in recliner tolerated for multpul hours. Pt remained on high flow while at rest, 4L oximask with ambulation. Sat's remained in low 90's during ambulation.
--- NOTE | 2022-06-11 15:34 | RESP.RT ---
Goal tonight for patient to wear CPAP as tolerated. CPAP set at 8 cm pressure, FiO2 23%. Patient may return to HFNC as needed. Patient has OxyMask at 4 Lpm for activity.
[2022-06-11] MEDS: POTASSIUM CHLORIDE 10 MEQ CAPSULE ER 20 MEQ PO (16:05)
[2022-06-11] MEDS: ONDANSETRON 2 MG/ML inj 4 MG IVP (16:07)
--- NOTE | 2022-06-11 17:00 | P.IMPN_ITS ---
Progress Note: A&P Assessment and plan (1) Acute respiratory failure, unspecified whether with hypoxia or hypercapnia: Problem details: -continue on broader antibiotic coverage secondary to her mental status and what appears to be expanding pneumonia, now bilateral. Her oxygen demands are stab ilizing. Not nearly as tachypneic at rest. She had been on ceftriaxone, azithromycin and doxycycline. She was switched to cefepime and vancomycin. She is in the unit. Continue DuoNebs, vibratory PEEP, ISP and close monitoring for ARDS or respiratory compromise/failure. Ventilation improving with CPAP alternating with high-flow humidified oxygen. Status: Acute Assessment and Plan: Much improved. Continue with current efforts. (2) Demand ischemia: Problem details: Trans thoracic echocardiogram, reassuring. EKG bradycardic but otherwise reassuring. No chest pain. Troponin on 06/06/2022 did peak at 0.21 was given 324 mg of chewable aspirin, will continue this with 81 mg per day. No Plavix started. May consider outpatient cardiology follow-up. Improving with stabilization of respiratory status. Status: Acute Assessment and Plan: Slowly improving with resolving pulmonary condition. (3) Pneumonia: Problem details: As above. Widening Antibiotic coverage with cefepime and vancomycin at this time. Will add steroids to her regimen for few days only starting 06/10/2022. Status: Acute Assessment and Plan: Leukopenia is evolving. Likely this is related to vancomycin toxicity. Will stop vancomycin. Will add levofloxacin orally for double coverage for possible strep pneumoniae. (4) Abnormal LFTs (liver function tests): Problem details: Likely from hepatic congestion or transaminitis from current infection - more likely the former. Will trend. Status: Acute Assessment and Plan: Transaminases are improving. Alkaline phosphatase still not improving. (5) Hypothyroidism: Problem details: Continue current outpatient levothyroxine dosing Status: Acute (6) Hyponatremia: Problem details: Trended follow Status: Acute (7) Weakness: Problem details: Have therapies work with her. Concern is that she is developing ICU-acquired weakness syndrome. Status: Acute Assessment and Plan: Much improved today. (8) AMS (altered mental status): Problem details: Less groggy this morning. A brain MRI was normal for age. I suspect she is mildly encephalopathic mainly from her infection and less so from opioid/benzo pain meds. Status: Acute Assessment and Plan: Much improved. (9) Protein-calorie malnutrition: Status: Acute Assessment and Plan: Continue with efforts at refeeding. (10) Diastolic heart failure with preserved ejection fraction: Status: Acute Assessment and Plan: Will stop the torsemide diuretic at this juncture. Monitor weights. 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 Right greater trochanteric bursa injection 06/06/2022 with [facility]. Patient is extremely sensitive to pain medications, opioids and tramadol, benzodiazepine she becomes very groggy for hours. I am controlling her pain with Toradol, scheduled Tylenol and recent bursa injection. Status: Acute Plan Reviewed above with patient and . Answered their questions. They are agreeable. Time Spent With Patient Total time spent: 30 minutes Subjective Time Seen by Provider: 08:00 Date Seen: 06/11/22 Interval history: Daily Progress Note - Hospital Medicine Day #: 8 CC: Pneumonia, delirium, weakness, right hip pain OVERNIGHT UPDATES FROM STAFF & MED, LAB, IMAGING UPDATES -continues to note a general sense of improvement. Tolerating increased activities. -right proximal leg and hip discomfort not problematic today. Pelvic CT from admission did not reveal any abnormal findings in the right hip. MRI revealed only osteoarthritis. -better tolerating alternating CPAP and High-Flow humidified O2. Now coughing up some sputum more so than previously. -Remains afebrile. Requiring oxygen supplementation via nasal cannula at low flow. CXR 1. Persistent dense airspace consolidation throughout the left lung, similar compared to prior. 2. New faint patchy airspace opacity throughout the right lung, suspicious for pneumonia. Right hip MRI 1. Mild osteoarthritis of the right hip. Tearing of the right acetabular labrum. 2. Mild osteoarthritis of the left hip. 3. 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 Small amount of fluid in the right subgluteus minimus bursa. 4. Small amount of free fluid in the pelvis. 5. No fracture or stress reaction. I also ordered brain MRI given her subtle but noticeable mental status change/somnolence. This showed Brain MRI 1. No acute intracranial abnormality. 2. No pathologic enhancement to suggest intracranial metastases. 3. Multiple scattered foci of T2/FLAIR signal hyperintensity in the supratentorial subcortical white matter are nonspecific but typical for chronic microangiopathy changes. 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 4. Mild parenchymal volume loss. I reviewed her chest abdomen pelvis from admission FROM ADMISSION, notably: -Left upper lobe consolidation with associated small left pleural effusion concerning for pneumonia. Recommend unenhanced chest CT in 3 months after appropriate medical therapy to document resolution and to assess for underlying malignant potential. -As it regards her elevated troponin: There has been no chest pain. EKG was reassuring for sinus bradycardia without signs of ischemia. Echocardiogram was extremely reassuring. No valvular abnormalities. Some very mild LVH. Normal EF normal left and right systolic function. Her rate has been normal. Trending this troponin she noted a bump again 3 hours later to 0.21. She continues to be without chest pain or hemodynamic instability. CT scan of chest without contrast 06/08/2022 1. Consolidative left upper lobe pneumonia increased, increased left lower lobe atelectasis with possible infiltrate as well as new patchy infiltrates in the right upper and lower lobes. 2. Small to moderate left-sided pleural effusion and small right pleural effusion, both increased. 3. Stable borderline mediastinal lymphadenopathy. No New fevers. Tolerating ambulating in her room. Able to sit in a chair in her room longer. Better tolerating alternating CPAP and high-flow oxygen. Notes she still has decreased appetite, nevertheless is tolerating altered diet per Nutrition consultation. Not as anxious today as she was yesterday. Patient had a few episodes of apnea yesterday seemingly not related to oxygen administration, opioid or benzodiazepine ingestion. Has not had any such episode since. Exam Narrative: Exam Narrative: More awake, alert, interactive. More spontaneous. Alert, oriented to self, place, time, situation. Mood and affect are congruent. Talkative, friendly. Not as anxious as previous. Left greater than right rales. Scattered rhonchi, no wheezing. Heart tones with regular rhythm, normal S1-S2. Abdomen with active bowel sounds, soft, nontender. Extremities without edema. Weight down to 76 kg. Weight is down 10 kg from her maximum weight. Weight is still up 2 kg from admission weight. Const: Vital Signs, click to edit/add: Vital Signs - 24 hr 06/10/22 19:00 06/10/22 19:00 06/10/22 19:00 Temperature 98.6 F Pulse Rate Pulse Rate [Apical ] 71 Pulse Rate [Pulse Oximeter] 68 Respiratory Rate 20 20 Blood Pressure [Le ft Arm] 141/76 H Blood Pressure [Ri ght Arm] Blood Pressure [or thostatic lying Ri ght Arm] Blood Pressure [or thostatic sitting Right Arm] Blood Pressure [or thostatic standing Right Arm] Pulse Oximetry 92 Oxygen Delivery Me thod High Flow Nasal Ca nnula Oxygen Flow Rate 25 Fraction of Inspir ed Oxygen 06/10/22 21:00 06/10/22 23:00 06/10/22 23:00 Temperature Pulse Rate 79 Pulse Rate [Apical ] Pulse Rate [Pulse Oximeter] 69 Respiratory Rate 20 Blood Pressure [Le ft Arm] Blood Pressure [Ri ght Arm] Blood Pressure [or thostatic lying Ri ght Arm] Blood Pressure [or thostatic sitting Right Arm] Blood Pressure [or thostatic standing Right Arm] Pulse Oximetry Oxygen Delivery Me thod Oxygen Flow Rate Fraction of Inspir ed Oxygen 06/10/22 23:00 06/10/22 23:00 06/11/22 01:00 Temperature 98.3 F Pulse Rate Pulse Rate [Apical ] Pulse Rate [Pulse Oximeter] 69 Respiratory Rate 20 20 Blood Pressure [Le ft Arm] 143/87 H Blood Pressure [Ri ght Arm] Blood Pressure [or thostatic lying Ri ght Arm] Blood Pressure [or thostatic sitting Right Arm] Blood Pressure [or thostatic standing Right Arm] Pulse Oximetry 94 94 Oxygen Delivery Me thod BiPAP BiPAP Oxygen Flow Rate Fraction of Inspir ed Oxygen 06/11/22 03:00 06/11/22 03:00 06/11/22 03:00 Temperature 98.2 F Pulse Rate Pulse Rate [Apical ] Pulse Rate [Pulse Oximeter] 69 72 Respiratory Rate 20 20 Blood Pressure [Le ft Arm] Blood Pressure [Ri ght Arm] 150/86 H Blood Pressure [or thostatic lying Ri ght Arm] Blood Pressure [or thostatic sitting Right Arm] Blood Pressure [or thostatic standing Right Arm] Pulse Oximetry 93 Oxygen Delivery Me thod High Flow Nasal Ca nnula Oxygen Flow Rate 25 Fraction of Inspir ed Oxygen 06/11/22 05:00 06/11/22 10:23 06/11/22 10:23 Temperature Pulse Rate Pulse Rate [Apical ] Pulse Rate [Pulse Oximeter] Respiratory Rate 22 Blood Pressure [Le ft Arm] Blood Pressure [Ri ght Arm] Blood Pressure [or thostatic lying Ri ght Arm] Blood Pressure [or thostatic sitting Right Arm] Blood Pressure [or thostatic standing Right Arm] Pulse Oximetry 92 Oxygen Delivery Me thod High Flow Nasal Ca nnula Oxygen Flow Rate 25 25 Fraction of Inspir ed Oxygen 23 23 06/11/22 10:33 06/11/22 10:35 06/11/22 08:15 Temperature 97.8 F Pulse Rate Pulse Rate [Apical ] Pulse Rate [Pulse Oximeter] 74 Respiratory Rate 20 18 Blood Pressure [Le ft Arm] Blood Pressure [Ri ght Arm] 146/80 H Blood Pressure [or thostatic lying Ri ght Arm] Blood Pressure [or thostatic sitting Right Arm] Blood Pressure [or thostatic standing Right Arm] Pulse Oximetry 92 92 Oxygen Delivery Me thod High Flow Nasal Ca nnula High Flow Nasal Ca nnula Oxygen Flow Rate 25 Fraction of Inspir ed Oxygen 06/11/22 08:15 06/11/22 10:44 06/11/22 08:15 Temperature Pulse Rate Pulse Rate [Apical ] Pulse Rate [Pulse Oximeter] Respiratory Rate 18 Blood Pressure [Le ft Arm] Blood Pressure [Ri ght Arm] Blood Pressure [or thostatic lying Ri ght Arm] Blood Pressure [or thostatic sitting Right Arm] Blood Pressure [or thostatic standing Right Arm] Pulse Oximetry 92 Oxygen Delivery Me thod High Flow Nasal Ca nnula Oxygen Flow Rate 25 Fraction of Inspir ed Oxygen 06/11/22 08:15 06/11/22 07:10 06/11/22 11:00 Temperature Pulse Rate 79 Pulse Rate [Apical ] Pulse Rate [Pulse Oximeter] Respiratory Rate 18 Blood Pressure [Le ft Arm] Blood Pressure [Ri ght Arm] Blood Pressure [or thostatic lying Ri ght Arm] 145/79 H Blood Pressure [or thostatic sitting Right Arm] 147/91 H Blood Pressure [or thostatic standing Right Arm] 144/86 H Pulse Oximetry Oxygen Delivery Me thod Oxygen Flow Rate Fraction of Inspir ed Oxygen 06/11/22 11:00 06/11/22 12:00 06/11/22 14:00 Temperature 97.8 F Pulse Rate Pulse Rate [Apical ] Pulse Rate [Pulse Oximeter] 66 Respiratory Rate 18 Blood Pressure [Le ft Arm] Blood Pressure [Ri ght Arm] 147/91 H Blood Pressure [or thostatic lying Ri ght Arm] Blood Pressure [or thostatic sitting Right Arm] Blood Pressure [or thostatic standing Right Arm] Pulse Oximetry 94 Oxygen Delivery Me thod High Flow Nasal Ca nnula Oxygen Flow Rate 25 Fraction of Inspir ed Oxygen 06/11/22 16:00 06/11/22 16:00 06/11/22 16:00 Temperature 98.5 F Pulse Rate Pulse Rate [Apical ] Pulse Rate [Pulse Oximeter] 72 Respiratory Rate 18 18 Blood Pressure [Le ft Arm] Blood Pressure [Ri ght Arm] 147/76 H Blood Pressure [or thostatic lying Ri ght Arm] Blood Pressure [or thostatic sitting Right Arm] Blood Pressure [or thostatic standing Right Arm] Pulse Oximetry 92 92 Oxygen Delivery Me thod High Flow Nasal Ca nnula High Flow Nasal Ca nnula Oxygen Flow Rate 25 25 Fraction of Inspir ed Oxygen 06/11/22 16:00 06/11/22 15:00 Temperature Pulse Rate 65 Pulse Rate [Apical ] Pulse Rate [Pulse Oximeter] Respiratory Rate 18 Blood Pressure [Le ft Arm] Blood Pressure [Ri ght Arm] Blood Pressure [or thostatic lying Ri ght Arm] Blood Pressure [or thostatic sitting Right Arm] Blood Pressure [or thostatic standing Right Arm] Pulse Oximetry Oxygen Delivery Me thod Oxygen Flow Rate Fraction of Inspir ed Oxygen Documenting provider has reviewed patient's vital signs: yes Labs Labs: Laboratory Results - last 24 hr 06/11/22 06/11/22 06/11/22 06:22 06:22 06:22 WBC 2.74 L RBC 4.03 Hgb 11.8 L Hct 34.6 MCV 86 MCH 29 MCHC 34 Plt Count 345 VBG pH 7.531 H VBG pCO2 29 L VBG pO2 78.7 H VBG HCO3 24 Potassium 3.2 L Creatinine 0.7 Estimated Creat Clear 47.53 Estimated GFR 89 Lactate 0.9 Magnesium 2.0 Total Bilirubin 0.6 Direct Bilirubin 0.3 AST 79 H ALT 49 H Alkaline Phosphatase 537 H Total Creatine Kinase 91 NT-Pro-B Natriuret Pep 7350 Total Protein 6.3 Albumin 2.8 L
--- NOTE | 2022-06-11 18:49 | CRLHL7_ITS ---
For Patients: As a result of the Century Cures Act, medical imaging exams and procedure reports are released immediately into your electronic medical record. You may view this report before your referring provider. If you have questions, please contact your health care provider. INDICATION: Follow-up pneumonia. TECHNIQUE: Chest 1 view. COMPARISON: Chest radiograph 06/10/2022. FINDINGS: Tiny right and moderate left pleural effusions. Persistent large consolidation in the left upper lung. Slightly improved aeration of the left perihilar region and left lower lung. Subtle opacities throughout the right lung which are improved compared to prior exam. No pneumothorax. Heart size upper limits of normal. The bones are unremarkable. IMPRESSION: 1. Persistent large consolidation in the left upper lung. Slightly improved aeration of the left lung. 2. Subtle opacities throughout the right lung, improved. 3. Tiny right and moderate left pleural effusions. Dictated by Sara Vazquez MD @ 06/11/2022 8:01:06 PM (Electronically Signed)
--- NOTE | 2022-06-11 20:03 | PM.DS1 ---
DS: Providers Provider Date Seen: 06/11/22 Date of admission: 06/06/22 14:46 Primary care physician: Not a Local Provider Admitting Clinician: Elisa Santos MD Consults: 06/04/22 14:56 Consult to Physical Therapy [CONS] Routine Comment: Reason(s) for PT Consult:: Evaluate and Treat Any Restrictions?:: No Restrictions 06/06/22 08:01 Consult to Physician [CONS] Routine Comment: ortho (amita or Dr. Dawson) right hip pain Consulting Provider: Amita Swanson Has provider been notified: No 06/08/22 15:23 Consult to Nutrition [CONS] Routine Comment: Reason for consult:: Miscellaneous Comment: Protein calorie malnutrition 06/09/22 12:13 Consult to Nutrition [CONS] Routine Comment: Reason for consult:: Miscellaneous Comment: poor po intake Attending Physician on discharge: Flor Cloud MD Date of Discharge: 06/11/22 DS: Diagnosis Discharge Diagnosis (1) Acute respiratory failure, unspecified whether with hypoxia or hypercapnia: Status: Acute Problem details: -continue on broader antibiotic coverage secondary to her mental status and what appears to be expanding pneumonia, now bilateral. - Ventilation improving with CPAP alternating with high-flow humidified oxygen - HOWEVER effusion/empyema is developing concern on the left -She had been on ceftriaxone, azithromycin and doxycycline. She was switched to cefepime and vancomycin. WITHOUT VANCOMYCIN WAS CAUSING NEUTROPENIA. CURRENTLY on cefepime, levaquin. -Continue DuoNebs, vibratory PEEP, ISP and close monitoring for ARDS or respiratory compromise/failure. (2) Pneumonia: Status: Acute Problem details: As above. Progressive more broad spectrum abx. Will add steroids to her regimen for few days only starting 06/10/2022. (3) Weakness: Status: Acute Problem details: Have therapies work with her. Concern is that she is developing ICU-acquired weakness syndrome. (4) Abnormal LFTs (liver function tests): Status: Acute Problem details: Likely from hepatic congestion or transaminitis from current infection - more likely the former. Will trend. (5) AMS (altered mental status): Status: Acute Problem details: Less groggy this morning. A brain MRI was normal for age. I suspect she is mildly encephalopathic mainly from her infection and less so from opioid/benzo pain meds. (6) Demand ischemia: Status: Acute Problem details: Trans thoracic echocardiogram, reassuring. EKG bradycardic but otherwise reassuring. No chest pain. Troponin on 06/06/2022 did peak at 0.21 was given 324 mg of chewable aspirin, will continue this with 81 mg per day. No Plavix started. May consider outpatient cardiology follow-up. Improving with stabilization of respiratory status. 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 Right greater trochanteric bursa injection 06/06/2022 with [facility]. Patient is extremely sensitive to pain medications, opioids and tramadol, benzodiazepine she becomes very groggy for hours. I am controlling her pain with Toradol, scheduled Tylenol and recent bursa injection. DS: Summary Hospital Course Hospital Course: HOSPITALIST TRANSFER SUMMARY ATTENDING PHYSICIAN: Flor Cloud MD REASON FOR TRANSFER Acute respiratory compromise secondary to community-acquired pneumonia Pulmonary medicine consult BRIEF HOSPITAL COURSE: 76-year-old presented with signs and symptoms consistent with community-acquired pneumonia. Dense left lower lobe pneumonia, weakness and right hip pain. Initially on room air but rapidly progressed to needing high-flow oxygen alternating with CPAP or BiPAP. Pressors. Initially no blood cultures were obtained. She was started on ceftriaxone and azithromycin. Essentially she was mid for weakness after a trial of ambulation in the ED failed. However within 48 hour she was in our ICU on high-flow. We broadened antibiotics and went to Zosyn instead of the ceftriaxone and vanc instead of azithromycin. Ultimately she was on cefepime and vancomycin. And as of the last 24 hours she is continued on cefepime but switched to Levaquin. She also received IV steroids. She has been getting DuoNebs, IS P and vibratory peep with the assistance of respiratory therapy. Her weakness is no better. Her mental status vacillates. On day 5 of her hospitalization we achieved transfer to tertiary care and pulmonary medince. Bottom line: We felt she likely had a dense strep pneumo, likely a developing empyema and would need a chest tube or bronchoscopy, PICC line In addition: She had some demand ischemia with a peaked troponin of 0.21. She had relatively unremarkable echocardiogram. Her EKGs typically showed sinus bradycardia without ischemia. She also had trochanteric bursitis, right hip and this was injected by our orthopedic group. SERVICES NOT AVAILABLE HERE THAT THIS PATIENT NEEDS: Intermediate ICU Pulmonary medicine Multi disciplinary care ACCEPTING PHYSICIAN/SERVICE/LOCATION: [facility] [place] MEDICATIONS AT TIME OF TRANSFER: See Mar DRIPS/LINES: Fluids, no pressors. No blood transfusions. VITAL SIGN, MEDICATION, LAB/MICRO, IMAGING SUMMARY (full details available in account tabs or by records request) 06/08/22 CT chest 1. Consolidative left upper lobe pneumonia increased, increased left lower lobe atelectasis with possible infiltrate as well as new patchy infiltrates in the right upper and lower lobes. 2. Small to moderate left-sided pleural effusion and small right pleural effusion, both increased. 3. Stable borderline mediastinal lymphadenopathy. See attached labs Came in with a white blood cell count of 11 K, neutropenic 2.74 this morning. Vancomycin was stopped because of this. Levaquin started. Cefepime continue Hemoglobin is stable 11.8 Alkalotic this morning 7.5, pCO2 29 Potassium 3.2 Normal renal function Lactate normal, magnesium normal LFTs continue to be elevated Troponin has down trended BLOOD CULTURES NEGATIVE FROM THE . HOWEVER PATIENT HAD BEEN ON ANTIBIOTICS SINCE THE . REVIEW OF SYSTEMS Unchanged. PHYSICAL EXAM: CONSTITUTIONAL: Drowsy VITAL SIGNS: see record. Exam unchanged from earlier DISPOSITION: Tertiary care Time spent on discharge >30 minutes. This includes speaking with accepting physician; family/patient and coordinating meds/drips for transfer Status at Discharge Functional status at discharge: uses cane/walker Overall status at discharge: patient is not back to baseline Time Spent with Patient Time attestation: Total time spent providing and/or coordinating discharge services: Time spent: Greater than 30 minutes Exam Const: Vital Signs, click to edit/add: Vital Signs - 24 hr 06/10/22 21:00 06/10/22 23:00 06/10/22 23:00 Temperature Pulse Rate 79 Pulse Rate [Pulse Oximeter] 69 Respiratory Rate 20 Blood Pressure [Le ft Arm] Blood Pressure [Ri ght Arm] Blood Pressure [or thostatic lying Ri ght Arm] Blood Pressure [or thostatic sitting Right Arm] Blood Pressure [or thostatic standing Right Arm] Pulse Oximetry Oxygen Delivery Me thod Oxygen Flow Rate Fraction of Inspir ed Oxygen 23 06/10/22 23:00 06/10/22 23:00 06/11/22 01:00 Temperature 98.3 F Pulse Rate Pulse Rate [Pulse Oximeter] 69 Respiratory Rate 20 20 Blood Pressure [Le ft Arm] 143/87 H Blood Pressure [Ri ght Arm] Blood Pressure [or thostatic lying Ri ght Arm] Blood Pressure [or thostatic sitting Right Arm] Blood Pressure [or thostatic standing Right Arm] Pulse Oximetry 94 94 Oxygen Delivery Me thod BiPAP BiPAP Oxygen Flow Rate Fraction of Inspir ed Oxygen 06/11/22 03:00 06/11/22 03:00 06/11/22 03:00 Temperature 98.2 F Pulse Rate Pulse Rate [Pulse Oximeter] 69 72 Respiratory Rate 20 20 Blood Pressure [Le ft Arm] Blood Pressure [Ri ght Arm] 150/86 H Blood Pressure [or thostatic lying Ri ght Arm] Blood Pressure [or thostatic sitting Right Arm] Blood Pressure [or thostatic standing Right Arm] Pulse Oximetry 93 Oxygen Delivery Me thod High Flow Nasal Ca nnula Oxygen Flow Rate 25 Fraction of Inspir ed Oxygen 06/11/22 05:00 06/11/22 10:23 06/11/22 10:23 Temperature Pulse Rate Pulse Rate [Pulse Oximeter] Respiratory Rate 22 Blood Pressure [Le ft Arm] Blood Pressure [Ri ght Arm] Blood Pressure [or thostatic lying Ri ght Arm] Blood Pressure [or thostatic sitting Right Arm] Blood Pressure [or thostatic standing Right Arm] Pulse Oximetry 92 Oxygen Delivery Me thod High Flow Nasal Ca nnula Oxygen Flow Rate 25 25 Fraction of Inspir ed Oxygen 23 06/11/22 10:33 06/11/22 10:35 06/11/22 08:15 Temperature 97.8 F Pulse Rate Pulse Rate [Pulse Oximeter] 74 Respiratory Rate 20 18 Blood Pressure [Le ft Arm] Blood Pressure [Ri ght Arm] 146/80 H Blood Pressure [or thostatic lying Ri ght Arm] Blood Pressure [or thostatic sitting Right Arm] Blood Pressure [or thostatic standing Right Arm] Pulse Oximetry 92 92 Oxygen Delivery Me thod High Flow Nasal Ca nnula High Flow Nasal Ca nnula Oxygen Flow Rate 25 Fraction of Inspir ed Oxygen 06/11/22 08:15 06/11/22 10:44 06/11/22 08:15 Temperature Pulse Rate Pulse Rate [Pulse Oximeter] Respiratory Rate 18 Blood Pressure [Le ft Arm] Blood Pressure [Ri ght Arm] Blood Pressure [or thostatic lying Ri ght Arm] Blood Pressure [or thostatic sitting Right Arm] Blood Pressure [or thostatic standing Right Arm] Pulse Oximetry 92 Oxygen Delivery Me thod High Flow Nasal Ca nnula Oxygen Flow Rate 25 Fraction of Inspir ed Oxygen 06/11/22 08:15 06/11/22 07:10 06/11/22 11:00 Temperature Pulse Rate 79 Pulse Rate [Pulse Oximeter] Respiratory Rate 18 Blood Pressure [Le ft Arm] Blood Pressure [Ri ght Arm] Blood Pressure [or thostatic lying Ri ght Arm] 145/79 H Blood Pressure [or thostatic sitting Right Arm] 147/91 H Blood Pressure [or thostatic standing Right Arm] 144/86 H Pulse Oximetry Oxygen Delivery Me thod Oxygen Flow Rate Fraction of Inspir ed Oxygen 06/11/22 11:00 06/11/22 12:00 06/11/22 14:00 Temperature 97.8 F Pulse Rate Pulse Rate [Pulse Oximeter] 66 Respiratory Rate 18 Blood Pressure [Le ft Arm] Blood Pressure [Ri ght Arm] 147/91 H Blood Pressure [or thostatic lying Ri ght Arm] Blood Pressure [or thostatic sitting Right Arm] Blood Pressure [or thostatic standing Right Arm] Pulse Oximetry 94 Oxygen Delivery Me thod High Flow Nasal Ca nnula Oxygen Flow Rate 25 Fraction of Inspir ed Oxygen 06/11/22 16:00 06/11/22 16:00 06/11/22 16:00 Temperature 98.5 F Pulse Rate Pulse Rate [Pulse Oximeter] 72 Respiratory Rate 18 18 Blood Pressure [Le ft Arm] Blood Pressure [Ri ght Arm] 147/76 H Blood Pressure [or thostatic lying Ri ght Arm] Blood Pressure [or thostatic sitting Right Arm] Blood Pressure [or thostatic standing Right Arm] Pulse Oximetry 92 92 Oxygen Delivery Me thod High Flow Nasal Ca nnula High Flow Nasal Ca nnula Oxygen Flow Rate 25 25 Fraction of Inspir ed Oxygen 06/11/22 16:00 06/11/22 15:00 06/11/22 18:00 Temperature Pulse Rate 65 Pulse Rate [Pulse Oximeter] Respiratory Rate 18 Blood Pressure [Le ft Arm] Blood Pressure [Ri ght Arm] Blood Pressure [or thostatic lying Ri ght Arm] Blood Pressure [or thostatic sitting Right Arm] Blood Pressure [or thostatic standing Right Arm] Pulse Oximetry Oxygen Delivery Me thod Oxygen Flow Rate Fraction of Inspir ed Oxygen 23 DS: Data Data Completed and Pending Labs on day of discharge: Labs from last 24 hours 06/11/22 06/11/22 06/11/22 06:22 06:22 06:22 WBC 2.74 L RBC 4.03 Hgb 11.8 L Hct 34.6 MCV 86 MCH 29 MCHC 34 Plt Count 345 VBG pH 7.531 H VBG pCO2 29 L VBG pO2 78.7 H VBG HCO3 24 Potassium 3.2 L Creatinine 0.7 Estimated Creat Clear 47.53 Estimated GFR 89 Lactate 0.9 Magnesium 2.0 Total Bilirubin 0.6 Direct Bilirubin 0.3 AST 79 H ALT 49 H Alkaline Phosphatase 537 H Total Creatine Kinase 91 NT-Pro-B Natriuret Pep 7350 Total Protein 6.3 Albumin 2.8 L Discharge Plan Discharge Disposition: [facility] Date of Admission: 06/06/22 14:46 Attending Provider on Discharge: Flor Cloud Primary Care Provider: Provider,Not a Local Hospital Course: HOSPITALIST TRANSFER SUMMARY ATTENDING PHYSICIAN: Flor Cloud MD REASON FOR TRANSFER Acute respiratory compromise secondary to community-acquired pneumonia Pulmonary medicine consult BRIEF HOSPITAL COURSE: 76-year-old presented with signs and symptoms consistent with community-acquired pneumonia. Dense left lower lobe pneumonia, weakness and right hip pain. Initially on room air but rapidly progressed to needing high-flow oxygen alternating with CPAP or BiPAP. Pressors. Initially no blood cultures were obtained. She was started on ceftriaxone and azithromycin. Essentially she was mid for weakness after a trial of ambulation in the ED failed. However within 48 hour she was in our ICU on high-flow. We broadened antibiotics and went to Zosyn instead of the ceftriaxone and vanc instead of azithromycin. Ultimately she was on cefepime and vancomycin. And as of the last 24 hours she is continued on cefepime but switched to Levaquin. She also received IV steroids. She has been getting DuoNebs, IS P and vibratory peep with the assistance of respiratory therapy. Her weakness is no better. Her mental status vacillates. On day 5 of her hospitalization we achieved transfer to tertiary care and pulmonary medince. Bottom line: We felt she likely had a dense strep pneumo, likely a developing empyema and would need a chest tube or bronchoscopy, PICC line In addition: She had some demand ischemia with a peaked troponin of 0.21. She had relatively unremarkable echocardiogram. Her EKGs typically showed sinus bradycardia without ischemia. She also had trochanteric bursitis, right hip and this was injected by our orthopedic group. SERVICES NOT AVAILABLE HERE THAT THIS PATIENT NEEDS: Intermediate ICU Pulmonary medicine Multi disciplinary care ACCEPTING PHYSICIAN/SERVICE/LOCATION: [facility] [place] MEDICATIONS AT TIME OF TRANSFER: See Mar DRIPS/LINES: Fluids, no pressors. No blood transfusions. VITAL SIGN, MEDICATION, LAB/MICRO, IMAGING SUMMARY (full details available in account tabs or by records request) 06/08/22 CT chest 1. Consolidative left upper lobe pneumonia increased, increased left lower lobe atelectasis with possible infiltrate as well as new patchy infiltrates in the right upper and lower lobes. 2. Small to moderate left-sided pleural effusion and small right pleural effusion, both increased. 3. Stable borderline mediastinal lymphadenopathy. See attached labs Came in with a white blood cell count of 11 K, neutropenic 2.74 this morning. Vancomycin was stopped because of this. Levaquin started. Cefepime continue Hemoglobin is stable 11.8 Alkalotic this morning 7.5, pCO2 29 Potassium 3.2 Normal renal function Lactate normal, magnesium normal LFTs continue to be elevated Troponin has down trended BLOOD CULTURES NEGATIVE FROM THE . HOWEVER PATIENT HAD BEEN ON ANTIBIOTICS SINCE THE . REVIEW OF SYSTEMS Unchanged. PHYSICAL EXAM: CONSTITUTIONAL: Drowsy VITAL SIGNS: see record. Exam unchanged from earlier DISPOSITION: Tertiary care Time spent on discharge >30 minutes. This includes speaking with accepting physician; family/patient and coordinating meds/drips for transfer Oxygen: Yes Oxygen Delivery Method: HIGH-FLOW 25 L, 23% Urinary Catheter: No
[2022-06-11] MEDS: FLUCONAZOLE 100 MG TABLET 200 MG PO (20:08)
--- NOTE | 2022-06-11 21:54 | PC.NURSE ---
Report given to John ODELL at [facility]. Pt going to room 8260
--- NOTE | 2022-06-12 01:49 | PC.NURSE ---
EMS here at 2310 to transport pt to [facility] in the [facility]. Report given to Calvin. pt put on gurney and family allowed to say goodbys. They will follow. EMS left around 2340.
== END 2022-06-11 10:31 | disposition short-term general hospital (02) | DRG 193 ==
LOC: ED 13:40 → MEDSURG 14:52
PROVIDERS: Hospitalist; Internal Medicine; Admitting Provider Family Medicine; Emergency Provider Family Medicine; Visit Provider Family Medicine
DX: J18.9 Pneumonia, unspecified organism (principal); J86.9 Pyothorax without fistula; J96.00 Acute respiratory failure, unspecified whether with hypoxia or hypercapnia; E87.1 Hypo-osmolality and hyponatremia; I24.8 Other forms of acute ischemic heart disease; E46 Unspecified protein-calorie malnutrition; I50.30 Unspecified diastolic (congestive) heart failure; I11.0 Hypertensive heart disease with heart failure; M70.61 Trochanteric bursitis, right hip; R41.0 Disorientation, unspecified; M25.551 Pain in right hip; R91.1 Solitary pulmonary nodule; R53.1 Weakness; E03.9 Hypothyroidism, unspecified; E78.5 Hyperlipidemia, unspecified; R74.01 Elevation of levels of liver transaminase levels; M16.0 Bilateral primary osteoarthritis of hip
CPT/HCPCS: 36415; 51798; 70553; 71045; 71250; 71260; 73723; 74177; 76705; 80048; 80053; 80074; 80076; 81001; 82150; 82330; 82550; 82565; 82803; 82977; 83540; 83550; 83605; 83690; 83735; 83880; 84100; 84132; 84145; 84295; 84439; 84443; 84484; 85025; 85027; 85610; 86140; 87040; 87086; 87502; 87634; 87635; 93005; 93306; 94640; 94660; 94664; 94761; 97110; 97116; 97140; 97162; 97165; 97530; 97535; 99285; A9270; A9575; G0378; J0692; J0696; J1650; J1885; J1940; J2060; J2405; J2920; J2930; J3370; J3480; J7030; J7050; J7120; Q9967

== ENCOUNTER 2022-06-11 23:10 | Outpatient (CLI) | payer OTHER, SELFPAY | END 2022-06-11 23:11 | disposition home or self-care (01) | LOC: AMB 06-13 10:43 | PROVIDERS: Visit Provider Family Medicine | DX: I21.4 Non-ST elevation (NSTEMI) myocardial infarction (principal); R53.1 Weakness; J18.9 Pneumonia, unspecified organism | CPT/HCPCS: A0425; A0426; A0427 ==

== ENCOUNTER 2022-07-24 10:38 | Outpatient (CLI) | payer OTHER, SELFPAY | END 2022-07-24 10:39 | disposition home or self-care (01) | PROVIDERS: Visit Provider Internal Medicine | DX: Z00.00 Encounter for general adult medical examination without abnormal findings (principal); E78.5 Hyperlipidemia, unspecified; E03.9 Hypothyroidism, unspecified | CPT/HCPCS: 80061; 84443 ==

== ENCOUNTER 2022-08-04 10:17 | Outpatient (CLI) | payer OTHER, SELFPAY | END 2022-08-04 10:18 | disposition home or self-care (01) | LOC: NFLDREF 08-06 10:40 | PROVIDERS: PCP Internal Medicine; Referring Provider Internal Medicine; Visit Provider Internal Medicine | DX: Z87.01 Personal history of pneumonia (recurrent) (principal) | CPT/HCPCS: 80053 ==

== ENCOUNTER 2024-03-30 09:59 | Outpatient (CLI) | payer OTHER, SELFPAY | END 2024-03-30 10:00 | disposition home or self-care (01) | PROVIDERS: PCP Family Medicine; Visit Provider Family Medicine | DX: I10 Essential (primary) hypertension (principal); E03.9 Hypothyroidism, unspecified; E78.5 Hyperlipidemia, unspecified | CPT/HCPCS: 80053; 80061; 84443 ==

== ENCOUNTER 2024-05-10 09:15 | Outpatient (CLI) | payer OTHER, SELFPAY | END 2024-05-10 09:16 | disposition home or self-care (01) | LOC: NFLDREF 05-11 08:04 | PROVIDERS: PCP Family Medicine; Referring Provider Family Medicine; Visit Provider Family Medicine | DX: I10 Essential (primary) hypertension (principal) | CPT/HCPCS: 80048 ==

== ENCOUNTER 2024-05-24 09:15 | Outpatient (CLI) | payer OTHER, SELFPAY | END 2024-05-24 09:16 | disposition home or self-care (01) | LOC: NFLDREF 05-27 06:54 | PROVIDERS: PCP Family Medicine; Referring Provider Family Medicine; Visit Provider Family Medicine | DX: I10 Essential (primary) hypertension (principal) | CPT/HCPCS: 80048 ==